=== PATIENT | female | born 1950 | race Caucasian/White ===

== ENCOUNTER → 2024-02-09 06:29 | Day surgery (SDC) | payer OTHER, SELFPAY | LOC: GI 06:29 | PROVIDERS: ATTENDING PHYSICIAN Internal Medicine Gastroenterology | DX: Z12.11 Encounter for screening for malignant neoplasm of colon (principal); K57.30 Diverticulosis of large intestine without perforation or abscess without bleeding; K64.0 First degree hemorrhoids; K63.5 Polyp of colon | CPT/HCPCS: 45380; 88305 ==

== ENCOUNTER → 2024-04-29 13:08 | Outpatient (REF) | payer OTHER, SELFPAY | LOC: HWWDC 13:08 | PROVIDERS: ATTENDING PHYSICIAN Family Medicine | DX: Z12.31 Encounter for screening mammogram for malignant neoplasm of breast (principal) | CPT/HCPCS: 77063; 77067 ==

== ENCOUNTER 2025-01-04 11:22 | Emergency (ER) | payer OTHER, SELFPAY ==
[2025-01-04] VITALS (11 sets, daily range): BP systolic 151–216; BP diastolic 72–118; BMI 23.4
[2025-01-04 12:01] LABS: % Basophils 0.8 % (0-2); % Eosinophils 0.7 % (0-6); % Immature Granulocytes 0.3 % (0-0.5); % Lymphocytes 22.4 % (20.5-51.1); % Monocytes 8.2 % (1.7-9.3); % Neutrophils 67.6 % (42.2-75.2); Absolute Basophils 0.1 10^3/uL (0-0.2); Absolute Eosinophils 0.1 10^3/uL (0-0.7); Absolute Lymphocytes 1.7 10^3/uL (1.2-3.4); Absolute Monocytes 0.6 10^3/uL (0.1-0.6); Absolute Neutrophils 5.2 10^3/uL (1.4-6.5); Hematocrit 40.2 % (37.0-47.0); Mean Corp Hgb Conc. 34.8 g/dL (33.0-37.0); Mean Corpuscular Hgb 29.7 pg (27.0-31.0); Mean Corpuscular Volume 85.4 fL (81.0-99.0); Mean Platelet Volume 9.7 fL (7.4-10.4); Nucleated Red Blood Cells % 0 %; Platelet Count 455 10^3/uL (130-400); Red Blood Cell Count 4.71 10^6/uL (4.20-5.40); Red Cell Dist. Width 13.2 % (11.5-14.5); White Blood Cell Count 7.6 10^3/uL (4.8-10.8)
[2025-01-04 12:02] LABS: INR 0.97; PT 13.2 Sec (11.4-14.6)
[2025-01-04 12:03] LABS: APTT 28.6 Sec (23.4-35.0)
[2025-01-04 12:05] LABS: ALT (SGPT) 18 U/L (0-35); AST (SGOT) 25 U/L (14-36); Albumin 4.2 g/dl (3.5-5.0); Alkaline Phosphatase 115 U/L (38-126); Blood Urea Nitrogen 19 mg/dl (7-17); Calcium 9.5 mg/dl (8.4-10.2); Carbon Dioxide 27 mmol/L (22-30); Chloride 101 mmol/L (98-107); Glucose 115 mg/dl (70-99); Potassium 4.1 mmol/L (3.5-5.1); Sodium 136 mmol/L (135-145); Total Bilirubin 0.5 mg/dl (0.2-1.3); Total Protein 6.7 g/dl (6.3-8.2); eGFR > 60.00
[2025-01-04 12:15] LABS: Troponin I < 0.012 ng/ml
--- NOTE | 2025-01-04 12:49 | ED.GENMED ---
History of Present Illness
General
Chief Complaint: Blood Pressure Problem
Source: patient
Exam Limitations: none
Time Seen by Provider: 01/04/25 12:27
Nursing documentation reviewed up to this point in time: agreed with
History of Present Illness
History of Present Illness:
74 yo female w h/o HTN, headaches presents for high blood pressure noted at PCP office 12/24/24 where she went due to feeling palpitations past month. EKG at PCP office showed 'irregularity' and referred to cardiology and placed her on Metoprolol 20
mg daily which she continues.
Saw Cardiology Dr. Hammer yesterday, placed on a heart monitor for a week, was on Lisinopril pst few years, that was DC'd and she was started on Losartan 100 mg of which she has had two doses yesterday, none
States 5/10 posterior headache, denies vision changes, felt nauseous on way here but denies nausea now, denies SOB, denies numbness or weakness.
Past History
Past History
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
ED Past Surgical History: Gynecological (Hysterectomy), Orthopedic, Tonsilectomy and Other (Brain surgery, removal of gastric tumor)
Social History
Tobacco: Non-smoker
Alcohol: None
Personal:
Living: alone
Employment: Employed
Family History
Family History: Other (Noncontributory)
Review of Systems
Review of Systems
Allergies reviewed?: Yes
All Other Systems: ROS reviewed and negative except as documented in HPI and ROS
Constitutional: Denies fever or fatigue
Respiratory: Denies trouble breathing (just feels like she has to take more deep breaths than usual)
Cardiac: Denies chest pain or diaphoresis
ABD/GI: Denies abdominal pain, nausea, vomiting or diarrhea
: Denies dysuria, frequency, difficulty voiding or urgency
Musculoskeletal: Reports no symptoms
Skin: Reports no symptoms
Neurological: Reports headache (5/10 posterior); Denies dizzy, weakness or numbness
Phy Exam
Physical Exam
Physical Exam:
GENERAL: No acute distress. A&Ox3.
CONSTITUTIONAL: Afebrile.
EYES: clear, conjunctivae normal
ENMT: moist mucus membranes, Pharynx nl
RESPIRATORY: Regular respirations, nonlabored, lungs clear.
CARDIOVASCULAR: Regular rate and rhythm, no murmurs, no rubs.
GI: Soft, nontender, normal BS
MUSCULOSKELETAL: Moves with ease. Well perfused.
SKIN: Warm, dry, pink
PSYCH: Normal mood and affect. Well kept, interactive and appropriate
NEUROLOGIC: Awake, alert and oriented. No focal neurological deficits
Course
Orders/Labs/Results
Orders:
Orders
01/04/25 11:29
Electrocardiogram (*1) Urgent
Reason for Study: Shortness of Breath
EKG- Treatment ONCE
01/04/25 11:42
Complete Blood Count/With Diff Urgent
Comprehensive Metabolic Panel Urgent
Protime/PTT Urgent
Troponin I Urgent
01/04/25 13:15
HydrALAZINE [Apresoline] 10 mg IV NOW STA
Abnormal Lab Results
01/04/25
11:42
Plt Count 455 H 10^3/uL
(130-400)
BUN 19 H mg/dl
(7-17)
Glucose 115 H mg/dl
(70-99)
01/04/25 11:42
01/04/25 11:42
Vital Signs
Initial and Last Documented VS:
Initial Vital Signs
Temp Pulse Resp BP Pulse Ox
98.1 F 66 18 216/118 97
01/04/25 11:25 01/04/25 11:25 01/04/25 11:25 01/04/25 11:25 01/04/25 11:25
Last Documented Vital Signs
Temp Pulse Resp BP Pulse Ox
98.1 F 72 13 170/86 96
01/04/25 11:25 01/04/25 14:45 01/04/25 14:45 01/04/25 14:45 01/04/25 14:00
Molding Fitter consulted with Physician
Molding Fitter consulted with physician?: Yes
Name of Physician Consulted: Axel
MDM/Problems Addressed
Differential Diagnosis Includes:
hypertensive urgency, hypertensive emergency
MDM/Problems Addressed:
74 yo female w h/o HTN, headaches presents for high blood pressure noted at PCP office 12/24/24 where she went due to feeling palpitations past month. EKG at PCP office showed 'irregularity' and referred to cardiology and placed her on Metoprolol 20
mg daily which she still takes
Saw Cardiology Dr. Hammer yesterday, placed on a heart monitor for a week, was on Lisinopril pst few years, that was DC'd and she was started on Losartan 100 mg of which she has had two doses yesterday, none
States 5/10 posterior headache, denies vision changes, felt nauseous on way here but denies nausea now, denies SOB, denies numbness or weakness.
EKG: NSR
Normal neuro exam
BP 205/97
CBC normal
CMP normal
Troponin normal
Has hx headaches, unsure if related to the HTN. No neuro deficits.
Dx: Hypertensive urgency, asymptomatic
1:[address] Reyna who recommends Hydralazine, continue Losartan
Pt has appt with PCP in 6 days she will keep
Strict return instructions reviewed.
1:35 p.m.
BP now 176/92 prior to Hydralazine
2:10 p.m.
15 min post Hydralazine, BP 153/74 pt feels dizzy, mild blurry vision, did ambulate steadily to BR and back.
Explained most likely side effect of medication, will monitory
2:50 p.m.
BP 170/78 feeling better. OOB and ambulating well, eyes feels a little hazy but much improved
Pt states she is comfortable going home. Her son at bedside will take her, he lives with her so she has good support and observation
Chronic conditions affecting care: HTN
*Critical Care Note
Total Time (30-74mins, 75-104mins- exclusive of procedures): Not Applicable
ED Attending Note
-
Portions of this chart may have been created with voice recognition software.� Occasional wrong word or��sound alike� substitutions may have occurred due to the inherent limitations of voice recognition software.
Discharge Plan
Departure
Patient Disposition: Home (Routine Discharge)
Date of Disposition: 01/04/25
Time of Disposition: 14:57
Patient with high blood pressure during this ER visit?: Yes
Condition: Good
Discharge Problem:
Asymptomatic hypertensive urgency
Instructions: High Blood Pressure (DC)
Prescriptions:
No Action
venlafaxine [Effexor XR] 37.5 MG capsule,extended release 24hr
37.5 mg PO HS
methimazole 10 MG tablet
5 mg PO .TWICE WEEKLY
zolpidem 5 MG tablet
5 mg PO HSPRN PRN (Reason: insomnia)
omeprazole 40 MG capsule,delayed release(DR/EC)
40 mg PO DAILY
sucralfate [Carafate] 1 GM/10 ML suspension
1 gm PO QIDPRN PRN (Reason: upper abdominal pain) Qty: [phone] [id number]
Referrals:
Jayy Foss MD [Family Provider] - Keep scheduled appt
Ezequiel Hammer, DO [Active] - As needed
Activity Restrictions/Additional Instructions:
As we discussed, nothing worrisome in your lab work, cardiac marker is normal (no sign of heart attack), no sign of a stroke, kidney function is good.
You were given Hydralazine here to lower your blood pressure.
Continue your Losartan as prescribed, if your blood pressure is still high in 2 days (greater than 170/[address] Hammer to discuss.
Keep your appointment with your PCP on Friday
Return here immediately for chest pain, trouble breathing, vision changes, numbness or weakness, confusion, difficulty speaking, dizziness, vomiting or feeling sicker in any way
The side effect from the Hydralazine should be gone by tomorrow
Take your Losartan when you get home.
Call me any time before 6 p.m. if you have any concerns or worries
Interventions
Interventions:
*Risk Screen - Suicide Last Done: 01/04/25 11:25
*General Assessment Last Done: 01/04/25 11:25
*Neglect/Abuse Screening Last Done: 01/04/25 11:25
ED- Fall Risk Assessment Last Done: 01/04/25 12:21
*ED COVID-19 Vaccine History Last Done: 01/04/25 11:25
*Nursing Disposition Last Done: 01/04/25 15:27
ED- Cardiac Assessment Last Done: 01/04/25 12:21
ED- Neurological Assessment Last Done: 01/04/25 12:21
ED- Pulmonary Assessment Last Done: 01/04/25 12:21
Discharge Date and Time
Discharge Date/Time: 01/04/25 15:28
Print Language: CENTRAL AFRICAN
[2025-01-04] MEDS: APRESOLINE 10 MG IV (13:34)
== END 2025-01-04 15:28 | disposition home or self-care (01) ==
LOC: EMR 11:22
PROVIDERS: EMERGENCY PHYSICIAN Emergency Medicine; FAMILY PHYSICIAN Family Medicine; OTHER PHYSICIAN Internal Medicine Cardiovascular Disease
DX: I16.0 Hypertensive urgency (principal); Z79.899 Other long term (current) drug therapy; Z90.710 Acquired absence of both cervix and uterus
CPT/HCPCS: 96374; 99284; 80053; 84484; 85025; 85610; 85730; 93005

== ENCOUNTER → 2025-01-25 12:30 | Outpatient (REF) | payer OTHER, SELFPAY | LOC: HWRAD 12:30 | PROVIDERS: ATTENDING PHYSICIAN Internal Medicine Cardiovascular Disease; FAMILY PHYSICIAN Family Medicine | DX: R06.02 Shortness of breath (principal) | CPT/HCPCS: 93306 ==

== ENCOUNTER → 2025-02-09 14:44 | Outpatient (REF) | payer OTHER, SELFPAY | LOC: RAD 14:44 | PROVIDERS: ATTENDING PHYSICIAN Family Medicine | DX: I10 Essential (primary) hypertension (principal) | CPT/HCPCS: 93975 ==

== ENCOUNTER 2025-06-10 16:17 | Inpatient (IN) | payer OTHER, SELFPAY ==
[2025-06-10] VITALS (11 sets, daily range): BP systolic 129–165; BP diastolic 73–84; BMI 23.6; BMI 22.6
--- NOTE | 2025-06-10 08:10 | ED.GENMED ---
History of Present Illness
<Brionna Roque MD, Resident - Last Filed: 06/10/25 14:44>
General
Chief Complaint: Abdominal Pain
Source: patient and significant other
Exam Limitations: none
Time Seen by Provider: 06/10/25 07:32
Nursing documentation reviewed up to this point in time: agreed with
History of Present Illness
History of Present Illness:
Ms. Marichuy Beckham is a 75-year-old female with a PMH notable for a small pancreatic cyst, PUD (s/p cauterization 6 years ago), stomach GIST (s/p surgical resection years ago), Graves', in remission for 6 years, and hypertensive urgency, who is
presenting with 3 weeks of increasing upper abdominal pain.
The pain is in the epigastric region and radiates to the right side and around to the back. The pain started as dull and she is coming to the ED because the pain has increased since yesterday. The pain waxes and wanes, lasting 15 minutes. The pain
has improved with eating.
She brought this concern to her PCP on 06/06/2025; all labs were normal (CBC, CMP, AST, ALT, bili lipase, and amylase) except for an elevated ALP at 221. The H. pylori test was inconclusive (patient recalls reading the reason as low CO2).
After her PCP visit on 06/06/2025, she developed chest discomfort ('like my heart was going to pop out of my chest') while walking up a hill. She then wanted to lie down, which she did after she returned home. She felt fatigued for 2 days
until Friday, after which her abdominal pain intensified. In December 2024 she presented to the ED due to a headache and high blood pressure and her rate irregularity found at her PCPs office. She was treated for hypertensive urgency. Her
Holter monitor and echo were negative. She states the cardiac symptoms in the last few days felt different from December.
She received cauterization for gastric or duodenal ulcers 6 years ago and has not had issues with it since then. She states the GIST in her stomach was cured via surgical resection after lack of response to Gleevec. She is in remission for Graves'
disease for 6 years.
She denies weight loss, diarrhea, nausea/vomiting.
Past History
<Brionna Roque MD, Resident - Last Filed: 06/10/25 14:44>
Past History
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
ED Past Surgical History: Gynecological (Hysterectomy), Orthopedic, Tonsilectomy and Other (Brain surgery, removal of gastric tumor)
Social History
Tobacco: Non-smoker
Alcohol: None
Personal:
Living: alone
Employment: Employed
Family History
Family History: Other (Noncontributory)
Review of Systems
<Brionna Roque MD, Resident - Last Filed: 06/10/25 14:44>
Review of Systems
All Other Systems: ROS reviewed and negative except as documented in HPI and ROS
Phy Exam
<Brionna Roque MD, Resident - Last Filed: 06/10/25 14:44>
Physical Exam
Physical Exam:
General: No acute distress, alert
Abdomen: Tenderness to light and deep palpation in the epigastric region, right upper quadrant, left upper quadrant.
Tenderness to palpation left lower quadrant and right lower quadrant. No suprapubic tenderness. Normal bowel sounds.
Spine: No CVA tenderness bilaterally. No deformities of the spine.
Cardiovascular: Normal rate and rhythm. Radial pulses 2+ bilaterally.
No pedal edema
Lungs: Clear to auscultation bilaterally
Course
<Brionna Roque MD, Resident - Last Filed: 06/10/25 14:44>
Orders/Labs/Results
Orders:
Orders
06/10/25 07:12
ECG [Electrocardiogram (*1)] Urgent
Reason for Study: Abdominal Pain
06/10/25 07:13
EKG- Treatment ONCE
06/10/25 07:47
Complete Blood Count/With Diff Urgent
Comprehensive Metabolic Panel Urgent
Lipase Urgent
06/10/25 08:36
Cardiac Monitoring- Treatment ONCE
06/10/25 08:37
CT Abd/pel W Iv And Oral Contr Urgent
Comment:
Reason For Exam: upper abd pain; hx PUD, panc cyst, stomach GIST
Iohexol [Omnipaque] See Protocol PO NOW STA
06/10/25 08:38
Pantoprazole [Protonix IV] 40 mg IV NOW STA
06/10/25 08:40
Troponin I Urgent
06/10/25 09:12
Urinalysis Reflex To Culture Urgent
Date Specimen was Collected: 06/10/25
Time Specimen was Collected: 09:09
Urine Microscopic Reflex Cult Urgent
06/10/25 11:30
Morphine Sulfate 4 mg IV NOW STA
06/10/25 11:33
Ondansetron Injectable [Zofran] 4 mg IV NOW STA
06/10/25 14:35
Code Status As Directed
Resuscitation Status: Do not resuscitate
Reached after discussion with pt or family/Healthcare POA: Yes
06/10/25 14:43
PTT Urgent
Comment: Obtain baseline before beginning heparin infusion if not already collected
Heparin 4,800 units IV NOW STA
Pharmacy Request to Place See Dose Instructions PO NOW STA
Discontinue all Active Warfarin orders?: Yes
Nursing to Place Non Medication Order As Directed
Physician Order: PTT 6 hours after initial start of Heparin infusion
06/10/25 14:45
Heparin [id number] Units/250 ml 25,000 units in 250 ml IV PER PROTOCOL
Weight to be used for heparin protocol in kilograms (kg):: 60.5
Protocol:: DVT/PE
PTT Goal Range to be used:: PTT 73 to 111 seconds
Order type:: Initial
INITIAL Infusion Dose (UNITS/KG/hr) & then follow protocol:: 18 units/kg/hr
Infusion Dose in UNITS/hr & then follow protocol (UNITS/hr):: 1,100
INFUSION RATE in mL/hr & then follow protocol (mL/hr):: 11
For DVT/PE algorithm, re-bolus for low PTT?: Yes
PTT less than or equal to 64 seconds:: Re-bolus 80 units/kg (max 10,000units). Increase by 200 units/hr
(+ 2mL/hr)
PTT 64.1 to 72.9 seconds:: Re-bolus 40 units/kg (max 5,000 units). Increase by 100 units/hr
(+ 1mL/hr)
PTT 73 to 111 seconds:: Target Range. No change in rate.
PTT 111.1 to 130.9 seconds:: Decrease rate by 100 units/hr (- 1 mL/hr)
PTT 131 to 199.9 seconds:: HOLD for 1 hr. Then decrease by 200 units/hr (- 2mL/hr)
PTT greater than or equal to 200 seconds:: HOLD for 2 hrs & Notify Provider. Then decrease by 200 units/hr
(- 2mL/hr)
Lab follow-up:: Each change, PTT q6h until 2 consecutive are therapeutic. Then
PTT daily.
06/10/25 15:[address] See Dose Instructions IV DIRECTED
Abnormal Lab Results
06/10/25 06/10/25
07:47 09:12
Abs Immat Gran (auto) 0.1 H 10^3/uL
(0-0.05)
Absolute Monos (auto) 0.9 H 10^3/uL
(0.1-0.6)
Immature Gran % 0.7 H %
(0-0.5)
Lymphocytes % 14.6 L %
(20.5-51.1)
Monocytes % 10.7 H %
(1.7-9.3)
Glucose 113 H mg/dl
(70-99)
AST 37 H U/L
(14-36)
Alkaline Phosphatase 169 H U/L
(38-126)
Urine Albumin (Reflex) 1+ A
(Neg - Trace)
06/10/25 07:47
06/10/25 07:47
Vital Signs
Initial and Last Documented VS:
Initial Vital Signs
Temp Pulse Resp BP Pulse Ox
98.1 F 72 16 162/81 96
06/10/25 07:21 06/10/25 07:21 06/10/25 07:21 06/10/25 07:21 06/10/25 07:21
Last Documented Vital Signs
Temp Pulse Resp BP Pulse Ox
98.1 F 66 19 165/77 95
06/10/25 07:21 06/10/25 11:20 06/10/25 11:20 06/10/25 12:01 06/10/25 12:30
<Andrew Millard, DO - Last Filed: 06/10/25 14:47>
Orders/Labs/Results
Orders:
Orders
06/10/25 07:12
ECG [Electrocardiogram (*1)] Urgent
Reason for Study: Abdominal Pain
06/10/25 07:13
EKG- Treatment ONCE
06/10/25 07:47
Complete Blood Count/With Diff Urgent
Comprehensive Metabolic Panel Urgent
Lipase Urgent
06/10/25 08:36
Cardiac Monitoring- Treatment ONCE
06/10/25 08:37
CT Abd/pel W Iv And Oral Contr Urgent
Comment:
Reason For Exam: upper abd pain; hx PUD, panc cyst, stomach GIST
Iohexol [Omnipaque] See Protocol PO NOW STA
06/10/25 08:38
Pantoprazole [Protonix IV] 40 mg IV NOW STA
06/10/25 08:40
Troponin I Urgent
06/10/25 09:12
Urinalysis Reflex To Culture Urgent
Date Specimen was Collected: 06/10/25
Time Specimen was Collected: 09:09
Urine Microscopic Reflex Cult Urgent
06/10/25 11:30
Morphine Sulfate 4 mg IV NOW STA
06/10/25 11:33
Ondansetron Injectable [Zofran] 4 mg IV NOW STA
06/10/25 14:35
Code Status As Directed
Resuscitation Status: Do not resuscitate
Reached after discussion with pt or family/Healthcare POA: Yes
06/10/25 14:43
PTT Urgent
Comment: Obtain baseline before beginning heparin infusion if not already collected
Heparin 4,800 units IV NOW STA
Pharmacy Request to Place See Dose Instructions PO NOW STA
Discontinue all Active Warfarin orders?: Yes
Nursing to Place Non Medication Order As Directed
Physician Order: PTT 6 hours after initial start of Heparin infusion
06/10/25 14:45
Heparin [id number] Units/250 ml 25,000 units in 250 ml IV PER PROTOCOL
Weight to be used for heparin protocol in kilograms (kg):: 60.5
Protocol:: DVT/PE
PTT Goal Range to be used:: PTT 73 to 111 seconds
Order type:: Initial
INITIAL Infusion Dose (UNITS/KG/hr) & then follow protocol:: 18 units/kg/hr
Infusion Dose in UNITS/hr & then follow protocol (UNITS/hr):: 1,100
INFUSION RATE in mL/hr & then follow protocol (mL/hr):: 11
For DVT/PE algorithm, re-bolus for low PTT?: Yes
PTT less than or equal to 64 seconds:: Re-bolus 80 units/kg (max 10,000units). Increase by 200 units/hr
(+ 2mL/hr)
PTT 64.1 to 72.9 seconds:: Re-bolus 40 units/kg (max 5,000 units). Increase by 100 units/hr
(+ 1mL/hr)
PTT 73 to 111 seconds:: Target Range. No change in rate.
PTT 111.1 to 130.9 seconds:: Decrease rate by 100 units/hr (- 1 mL/hr)
PTT 131 to 199.9 seconds:: HOLD for 1 hr. Then decrease by 200 units/hr (- 2mL/hr)
PTT greater than or equal to 200 seconds:: HOLD for 2 hrs & Notify Provider. Then decrease by 200 units/hr
(- 2mL/hr)
Lab follow-up:: Each change, PTT q6h until 2 consecutive are therapeutic. Then
PTT daily.
06/10/25 15:[address] See Dose Instructions IV DIRECTED
Abnormal Lab Results
06/10/25 06/10/25
07:47 09:12
Abs Immat Gran (auto) 0.1 H 10^3/uL
(0-0.05)
Absolute Monos (auto) 0.9 H 10^3/uL
(0.1-0.6)
Immature Gran % 0.7 H %
(0-0.5)
Lymphocytes % 14.6 L %
(20.5-51.1)
Monocytes % 10.7 H %
(1.7-9.3)
Glucose 113 H mg/dl
(70-99)
AST 37 H U/L
(14-36)
Alkaline Phosphatase 169 H U/L
(38-126)
Urine Albumin (Reflex) 1+ A
(Neg - Trace)
06/10/25 07:47
06/10/25 07:47
Vital Signs
Initial and Last Documented VS:
Initial Vital Signs
Temp Pulse Resp BP Pulse Ox
98.1 F 72 16 162/81 96
06/10/25 07:21 06/10/25 07:21 06/10/25 07:21 06/10/25 07:21 06/10/25 07:21
Last Documented Vital Signs
Temp Pulse Resp BP Pulse Ox
98.1 F 66 19 165/77 95
06/10/25 07:21 06/10/25 11:20 06/10/25 11:20 06/10/25 12:01 06/10/25 12:30
<Brionna Roque MD, Resident - Last Filed: 06/10/25 14:44>
MDM/Problems Addressed
Differential Diagnosis Includes:
Peptic ulcer disease
Gallstone
Renal stone
Stomach GIST recurrent
Other malignancy
Coronary artery disease
Hepatitis
Primary sclerosing cholangitis
Primary biliary cholangitis
Pancreatitis
Adhesions, bowel obstruction
MDM/Problems Addressed:
Ms. Marichuy Hicks is a 72-year-old female with a PMH notable for PUD, stomach GIST, pancreatic cyst, hypertensive urgency, Graves', trigeminal neuralgia, and hysterectomy, who is presenting with 3 weeks of epigastric pain.
Peptic ulcer disease is being considered given her endorsement of the pain decreasing with eating. Given her history of PUD, and pancreatic cyst, GIST s/p resection, and hysterectomy, will obtain a CT.
Protonix 40 mg IV
Patient reported increasing pain.
Morphine 4 mg IV
Zofran 4 mg IV
CBC: elevated granulocytes on differential
CMP: ALP 169, AST 37
Lipase: wnl
UA: wnl
EKG: NSR
Troponin I: WNL
library monitor
CT abdomen pelvis with IV and oral contrast
CT abdomen pelvis demonstrated a large, 11 cm heterogenous hepatic mass with satellite hepatic lesions likely representing HCC, metastases, or other malignancy. There is significant portal venous thrombus in the R & L intrahepatic portal veins,
likely tumor thrombus. There is also a mass in the left adrenal gland, likely a metastasis.
The patient received oncologic care for her stomach GIST at [place]. We asked if she would like to be transferred to [facility] or stay at [facility]. She stated she would like to proceed swiftly with cancer workup and
management at [facility].
Oncology and gastroenterology have been consulted for the management of her portal venous thrombus and cancer workup.
Chronic conditions affecting care: HTN, Previous abdomnial surgery and Cancer
<Brionna Roque MD, Resident - Last Filed: 06/10/25 14:44>
*Radiology
Radiology exam reviewed: radiology read reviewed
*Pulse Oximetry
SaO2: 96
Oxygen Mode of Delivery: Room air
Patient hypoxic: no
*EKG
Interpreted by ED Provider?: Yes
Interpretation: normal
Comparison EKG: no changes
Rate: normal
Rhythm: sinus
[place]: normal axis
Interval: normal interval
QRS Pattern: normal QRS
Ischemia: no ischemia
*[employer] Interpretation
Rate: normal
Interpretation: normal
Rhythm: sinus
*Critical Care Note
Total Time (30-74mins, 75-104mins- exclusive of procedures): Not Applicable
ED Attending Note
<Brionna Roque MD, Resident - Last Filed: 06/10/25 14:44>
-
Portions of this chart may have been created with voice recognition software.� Occasional wrong word or��sound alike� substitutions may have occurred due to the inherent limitations of voice recognition software.
<Andrew Millard, DO - Last Filed: 06/10/25 14:47>
ED Attending Note
Patient seen and examined by attending physician: Yes
I performed a history and physical exam of patient and discussed management with resident, I reviewed resident's note and agree with documented findings and plan of care.: Yes
ED Attending Note:
I reviewed and agree with history and treatment plan by Brionna Roque MD. My exam revealed 75-year-old female in no significant distress, mild epigastric tenderness with no rebound or guarding. CT abdomen pelvis pending. Protonix given. Alkaline
phosphatase now 169, it was elevated to 223 on Friday at primary care office. This was found on patient's [facility] portal.
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 Admit to hospitalist for heparin and biopsy. Discussion with gastroenterology, oncology and hospitalist.
Discharge Plan
Departure
Patient Disposition: Admit
Date of Disposition: 06/10/25
Time of Disposition: 13:54
Admit to: Med/Surg
Presentation/result/management discussed w/ accepting MD/DO: Hospitalist
Patient with high blood pressure during this ER visit?: Yes
Condition: Fair
Discharge Problem:
Liver malignancy, PVT (portal vein thrombosis), Adrenal mass, History of gastrointestinal stromal tumor (GIST)
Prescriptions:
No Action
venlafaxine [Effexor XR] 37.5 MG capsule,extended release 24hr
37.5 mg PO HS
zolpidem 5 MG tablet
5 mg PO HS
omeprazole 40 MG capsule,delayed release(DR/EC)
40 mg PO DAILY
amlodipine [Norvasc] 5 mg Tablet
5 mg PO HS
metoprolol succinate [Toprol XL] 25 mg Tablet Extended Release 24 Hr
25 mg PO HS
losartan 100 mg Tablet
100 mg PO HS
Referrals:
Jayy Foss MD [Family Provider, Family Practice]
Interventions
Interventions:
*Risk Screen - Suicide Last Done: 06/10/25 08:39
*General Assessment Last Done: 06/10/25 08:37
*Neglect/Abuse Screening Last Done: 06/10/25 08:37
*ED- Fall Risk Assessment Last Done: 06/10/25 07:21
*ED COVID-19 Vaccine History Last Done: 06/10/25 07:21
BU-Trdlnm-[facility] Assessment Last Done: 06/10/25 09:37
Discharge Date and Time
Print Language: ICELANDIC
[2025-06-10 08:44] LABS: Hematocrit 38.7 % (37.0-47.0); Hemoglobin 13.0 g/dL (12.0-16.0); Mean Corp Hgb Conc. 33.6 g/dL (33.0-37.0); Mean Corpuscular Volume 84.7 fL (81.0-99.0); Nucleated Red Blood Cells % 0 %; Platelet Count 367 10^3/uL (130-400); Red Cell Dist. Width 13.2 % (11.5-14.5)
[2025-06-10] MEDS: OMNIPAQUE 50 ML PO (08:44)
[2025-06-10] MEDS: PROTONIX IV 40 MG IV (08:44)
[2025-06-10 09:01] LABS: ALT (SGPT) 28 U/L (0-35); AST (SGOT) 37 U/L (14-36); Albumin 3.8 g/dl (3.5-5.0); Alkaline Phosphatase 169 U/L (38-126); Blood Urea Nitrogen 16 mg/dl (7-17); Calcium 9.4 mg/dl (8.4-10.2); Carbon Dioxide 27 mmol/L (22-30); Chloride 107 mmol/L (98-107); Estimated Creatinine Clearance 69 ml/min; Glucose 113 mg/dl (70-99); Lipase 46 U/L (23-300); Potassium 4.3 mmol/L (3.5-5.1); Sodium 138 mmol/L (135-145); Total Protein 6.3 g/dl (6.3-8.2); eGFR > 60.00
[2025-06-10 09:10] LABS: Troponin I < 0.012 ng/ml
[2025-06-10 09:21] LABS: Urine Character Clear (Clear)
[2025-06-10 09:48] LABS: Urine Red Blood Cell 0-2 /HPF (0-2); Urine Squamous Cell 0-2 /LPF (Few); Urine Urothelial Cell 0-2 /LPF (FEW); Urine White Cell 0-2 /HPF (0-5)
[2025-06-10] MEDS: ZOFRAN 4 MG IV (11:53)
[2025-06-10] MEDS: MORPHINE SULFATE 4 MG IV (11:53)
--- NOTE | 2025-06-10 13:54 | HPS.HSE ---
Addendum entered and electronically signed by Cherelle Suarez MD 06/10/25 16:19:
I personally performed a history and physical exam of the patient and discussed management with the resident. I reviewed the resident's note and agree with the documented findings and plan of care HPI/CC.
GENERAL: well developed, well nourished, female in no apparent distress
HEENT: NC/AT
HEART: regular rate and rhythm, +S1, +S2
LUNGS : clear to auscultation bilaterally
ABDOM: soft, minimally tender in RUQ, nondistended, + bowel sounds
EXT: no cyanosis, clubbing, or edema
NEUROLOGIC: nonfocal
Right Hepatic Lobe Masses with adrenal mass and portal vein thromboses--pt needs liver biopsy--apprec GI/heme--cont IV heparin--needs IR consult for liver biopsy--It is very possible that the thromboses are from her tumors--follow coags--pain control
Graves Disease--s/p methimazole--off all meds--check TSH
Essential Hypertension--Continue Losartan, Metoprolol, Amlodipine as able
History of stomach gastrointestinal Stromal Tumor--S/p resection in 2008 at [place]
History of Peptic Ulcer Disease with GI bleeding--none currently--cont PPI
History of Pancreatic Cyst--Encouraged outpatient monitoring
DVT proph--IV heparin
code status--DNR
Original Note:
Family Physician
-
Family Physician: Jayy Foss
Chief Complaint
-
Abdominal Pain
History of Present Illness
This is a 75 y/o female with pmhx of pancreatic cyst, peptic ulcer disease (S/p cauterization), stomach gastrointestinal stroll tumor (diagnosed in 2008, s/p resection), Grave�s Disease in remission for 6 years, who presented to the ED on 06/10/2025
with 3 weeks of increasing abdominal pain in her epigastric region radiating to the right side and around to her back. She reports that initially her symptoms began with an ache, but as of last weekend it increased to waves of pain. Her pain was
improved by eating and worsened by pressing on the right side of her abdomen. She scheduled an appointment with her PCP on 06/06/2025, who ordered labs for her including CBC, CMP, Lipase, Amylase. Her ALP was elevated at 221, but otherwise all tests
were within normal limits. That same day she reports sudden onset of shortness of breath while walking that required her to sit down. This episode resolved within 5 minutes on its own, and she never had shortness of breath like this before or since.
She states that during this episode it felt like she could not catch her breath and her heart was racing out of her chest, but denied any chest pain. She also reports a history of night sweats, but denies any weight loss or enlarged lymph nodes that
she has noticed.
On 06/08/2025 her pain continued to worsen until it became unbearable this morning, prompting her visit to the ED. Her Alkaline Phosphatase in the ED was 169, and her AST was 37. CT Abdomen/Pelvis in the ED revealed a large, space-occupying mass seen
in the right hepatic lobe measuring 11cm in the greatest diameter. Thrombus is seen in the right portal vein, main portal vein, and central left portal vein, likely representing tumor thumbs. Smaller additional hepatic lesion seen within the
posterior superior right hepatic lobe. There is a left adrenal mass measuring 1.8cm in diameters. The results of these findings have been discussed with her and her boyfriend.
Medical History
Past Medical History
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
Past Surgical History: Reports Brain (Patient reports prior brain surgery for trigeminal neuralgia ), Gynocological (Hysteretomyc) and Other (Spinal Fusion C4)
Social History
Tobacco: Non-smoker
Alcohol: None
Drug: None
Personal: Partner
Living: Other
Family History
Family History: Cancer (Brother of brain cancer at approximately 68 years old) and Other (Father in accident when she was young, Mother of natural causes, did not share medical history)
Allergies / Home Medications
Allergies reflects when Allergies were last updated in [employer].
Home Medications with original date entered in [employer]
Allergy/Medication List:
Allergies
Allergy/AdvReac Type Severity Reaction Status Date / Time
amoxicillin trihydrate (From Allergy Hives Verified 06/10/25 07:28
Augmentin)
carbamazepine (From Tegretol) Allergy Rash/fever Verified 06/10/25 07:28
latex Allergy Itching/kathe Verified 06/10/25 07:28
h
Penicillins Allergy Pharmacy Verified 06/10/25 07:28
to Review
potassium clavulanate (From Allergy Hives Verified 06/10/25 07:28
Augmentin)
Home Medications
venlafaxine 37.5 mg capsule,extended release 24 hr (Effexor XR) 37.5 mg PO HS 05/11/14
zolpidem 5 mg tablet 5 mg PO HS 10/16/16
omeprazole 40 mg capsule,delayed release 40 mg PO DAILY 04/14/18
amlodipine 5 mg tablet (Norvasc) 5 mg PO HS 06/10/25
losartan 100 mg tablet 100 mg PO HS 06/10/25
metoprolol succinate 25 mg tablet,extended release 24 hr (Toprol XL) 25 mg PO HS 06/10/25
Review of Systems
-
History Source: Patient
A 12 point ROS was completed and negative except as noted: Yes
Constitutional: Reports Night Sweats; Denies Fever, Weight Loss, Fatigue or Chills
EENT: Reports Runny Nose (While eating); Denies Sore Throat or Mouth Pain
Respiratory: Reports See HPI; Denies Cough
Cardiac: Denies Chest Pain, Diaphoresis or Palpitations
Abdomen/GI: Reports Abdominal Pain; Denies Nausea, Vomiting, Diarrhea or Constipated
: Denies Dysuria, Frequency or Urgency
Musculoskeletal: Denies Joint Pain or Muscle Pain
Skin: Denies Rash
Neurological: Denies Headache, Weakness or Numbness
Endocrine: Denies Polyuria
Hematologic/Lymphatic: Denies Bleeding
Psych: Reports Calm
Physical Exam
Vital Signs
Vital Signs
Temp Pulse Resp BP Pulse Ox
98.1 F 66 19 165/77 95
06/10/25 07:21 06/10/25 11:20 06/10/25 11:20 06/10/25 12:01 06/10/25 12:30
Physical Exam
General: Well Developed, Well Nourished, No Apparent Distress, Comfortable and Conversant
HEENT: NormoCephalic and Atraumatic
Respiratory: Clear
Cardiac: S1/S2 and Regular Rhythm
GI: Soft, Non Tender (Left side only), Non Distended, Normal Bowel Sounds and Tender (Right side)
Musculoskeletal: No Edema
Skin: Warm and Dry
Neuro: Awake, Alert and Oriented
Psych: Calm and Intact Judgment/Insight
Laboratory Results
-
06/10/25 07:47
06/10/25 07:47
Laboratory Results
Total Bilirubin 0.7 mg/dl (0.2-1.3) 06/10/25 07:47
AST 37 U/L (14-36) H 06/10/25 07:47
ALT 28 U/L (0-35) 06/10/25 07:47
Alkaline Phosphatase 169 U/L (38-126) H 06/10/25 07:47
Troponin I < 0.012 ng/ml 06/10/25 08:40
Lipase 46 U/L (23-300) 06/10/25 07:47
Impression/Plan
-
IMPRESSION:
This is a 75 y/o female with pmhx of pancreatic cyst, peptic ulcer disease (S/p cauterization), stomach gastrointestinal stroll tumor (diagnosed in 2008, s/p resection), Grave�s Disease in remission for 6 years, who presented to the ED on 06/10/2025
with 3 weeks of increasing abdominal pain in her epigastric region radiating to the right side and around to her back found to have masses in her liver and portal vein thromboses.
PLAN:
Right Hepatic Lobe Mass x 2/Adrenal Mass/Portal Vein Thromboses x 3
-CT Abdomen/Pelvis in the ED revealed a large, space-occupying mass seen in the right hepatic lobe measuring 11cm in the greatest diameter. Thrombus is seen in the right portal vein, main portal vein, and central left portal vein, likely
representing tumor thumbs. Smaller additional hepatic lesion seen within the posterior superior right hepatic lobe. There is a left adrenal mass measuring 1.8cm in diameters.
-Unclear origin of masses, concern for malignancy originating in the Liver vs Adrenals with Mets vs Independently originating masses. It is also possible for all masses observed to originate from the colon, though no other masses were noted on her
CT scan.
-Admitted patient for evaluation and treatment of new masses and thromboses. It is very possible that the thromboses are from her tumors
-Consulted IR for biopsy of 11cm liver mass
-Consulted Gastroenterology and Hematology/Oncology. Will appreciate their insight into her case
-Continue Heparin
-Ordered Coagulation studies
-Will monitor for worsening pain
Graves Disease
-In remission without use of medication for 6 years.
-Ordered TSH w/ Reflex to T4
Hypertension
-Patient with history of ED visit for hypertensive urgency
-Continue home meds (Losartan, Metoprolol, Amlodipine)
History of stomach gastrointestinal Stromal Tumor
-S/p resection in 2008 at [place]
-Encouraged follow up
History of Peptic Ulcer Disease
-Status post cauterization
-No current signs of GI bleed
-Will continue to monitor H&H
-Ordered Pantoprazole
History of Pancreatic Cyst
-Encouraged outpatient monitoring
--- NOTE | 2025-06-10 15:09 | CON.GI ---
Addendum entered and electronically signed by Marjan Shepard Do, MD 06/10/25 16:46:
I saw and examined the patient.
The ROLLER PNEUMATIC's note was reviewed and I agree with the note.
Comment: Marichuy is a 75yo W with h/o GIST s/p resection 2009 at [place] and small pancreatic cyst who was admitted for abd pain x3 weeks. She reports UTD with Cscope, mammograms and all her screening exams. Vitals stable exam younger than
stated age, mildly TTP in RUQ. Labs reviewed. CTAP IV oral contrast shows R hepatic lobe mass 11cm in size with large PVT suggestive of tumor thrombus. There is also L adrenal mass.
Impression
- 11cm liver mass
- PTV suggestive of tumor thrombus
- H/o GIST s/p resection
- H/o small pancreatic cyst no seen on today's CTAP IV contrast
- HTN
- GERD
Recommendations
- Agree with liver bx on Friday
- She has no signs of cirrhosis.
- AFP and tumor markers all sent
- Add viral hepatitis serologies but she has no risk factors
- Given that PVT appears to be tumor thrombus, anticoagulation would not be helpful in this situation however I would defer to hematology.
- C/w regular diet
Above d/w hospitalist and ER team
GI will sign off please call for ?
Addendum entered and electronically signed by LILIAN Aguilera 06/10/25 16:11:
family hx per OP chart- sibling with brain CA
Original Note:
Consultation
-
Date/Time Consultation Requested: 06/10/25 1330
Date/Time Consultation Performed: 06/10/25 1500
Requesting Provider: Hari Roque MD
Performing Provider: LILIAN Luna, Marjan Ibarra MD
Reason for Consultation: liver mass
Medical History
Chief Complaint / HPI
Chief Complaint: abdominal pain
History of Present Illness:
Pt is a 75yo with hx pancreatic cyst (last noted 2020 0.7cm without suspicious feature- pseudocyst vs IPMN did not proceed for 2 year follow up), GIST with Gleevac then [facility], PUD, HTN urgency, hyperlipidemia graves disease,
trigeminal neuralgia with prior brain surgery with onset HTN and palpitations several months ago. She had cardiology evaluation and now with onset of epigastric pain over last 3 weeks. She was seen by PCP on Friday and recommended MRI and labs.
After visit she had period of shortness of breath. She now presents with continued pain and CT completed on admission with concern for large mass right hepatic lobe and smaller satellite lesions concern for malignancy with also large PVT with
concern for tumor thrombus and adrenal mass. Labs on admission with stable hbg 13 with bili 0.7, AST 37, ALT 28, alk phos 169.
In review with patient she admits to epigastric pain x 3 weeks. Pain in intermittent. Initially though pain was better with eating but then no change with eating. She did have some improvement with Morphine given in ER. Unable to state what
makes pain worse. She otherwise denies odynophagia, dysphagia, GERD, nausea, vomiting, wt loss, diarrhea, constipation or rectal bleeding. Last EGD 2017 and colonoscopy 2023.
Past Medical History
Past Medical History: HTN (with HTN urgency), Hypercholesterolemia, Psychiatric (anxiety ) and Other (grave's disease on tapazole, gastric ulcers, 2016, GIST tumor with resection 2009, trigeminal neuralgia, insomnia, panc cyst )
Past Surgical History: Gynecological (hysterectomy), Orthopedic (spinal fusion, knee scope with partial medial meinscectomy), Tonsilectomy and Other (brain surgery for trigeminal neuralgia, gist tumor resection 2009 [facility] )
Social History
Tobacco: Non-Smoker
Alcohol: None
Drug: None
Personal:
Living: With Family
Employment: Employed
Family History
Family History: Other
Allergies / Home Medications
Allergy/AdvReac Type Severity Reaction Status Date / Time
amoxicillin trihydrate (From Allergy Hives Verified 06/10/25 07:28
Augmentin)
carbamazepine (From Tegretol) Allergy Rash/fever Verified 06/10/25 07:28
latex Allergy Itching/kathe Verified 06/10/25 07:28
h
Penicillins Allergy Pharmacy Verified 06/10/25 07:28
to Review
potassium clavulanate (From Allergy Hives Verified 06/10/25 07:28
Augmentin)
�Medication �Instructions �Recorded
venlafaxine 37.5 mg 37.5 mg PO HS 05/11/14
capsule,extended release 24 hr
(Effexor XR)
zolpidem 5 mg tablet 5 mg PO HS 10/16/16
omeprazole 40 mg capsule,delayed 40 mg PO DAILY 04/14/18
release
amlodipine 5 mg tablet (Norvasc) 5 mg PO HS 06/10/25
losartan 100 mg tablet 100 mg PO HS 06/10/25
metoprolol succinate 25 mg 25 mg PO HS 06/10/25
tablet,extended release 24 hr
(Toprol XL)
Review of Systems
-
History Source: Patient and Family
Constitutional: Reports No Symptoms
EENT: Reports No Symptoms
Respiratory: Reports Trouble Breathing (1 episode a few weeks ago )
Abdomen/GI: Reports Abdominal Pain
: Reports No Symptoms
Musculoskeletal: Reports No Symptoms
Skin: Reports No Symptoms
Neurological: Reports No Symptoms
Endocrine: Reports No Symptoms
Hematologic/Lymphatic: Reports No Symptoms
Vital Signs
Temp Pulse Resp BP Pulse Ox
98.1 F 66 19 165/77 95
06/10/25 07:21 06/10/25 11:20 06/10/25 11:20 06/10/25 12:01 06/10/25 12:30
Physical Exam
Exam
General: Well Developed, Well Nourished and No Apparent Distress
HEENT: Normocephalic, Anicteric and Moist Mucous Membranes
Respiratory: Clear
Cardiac: Regular Rhythm
GI: Soft, Non Distended and Tender (minimal epigastric tenderness )
Musculoskeletal: No Clubbing and No Cyanosis
Skin: Warm and Dry
Neuro: Awake, Alert and AO x 3
Psych: Calm
Results
WBC 8.2 10^3/uL (4.8-10.8) 06/10/25 07:47
Hgb 13.0 g/dL (12.0-16.0) 06/10/25 07:47
Hct 38.7 % (37.0-47.0) 06/10/25 07:47
MCV 84.7 fL (81.0-99.0) 06/10/25 07:47
Plt Count 367 10^3/uL (130-400) 06/10/25 07:47
Absolute Neuts (auto) 5.8 10^3/uL (1.4-6.5) 06/10/25 07:47
Sodium 138 mmol/L (135-145) 06/10/25 07:47
Potassium 4.3 mmol/L (3.5-5.1) 06/10/25 07:47
Chloride 107 mmol/L (98-107) 06/10/25 07:47
Carbon Dioxide 27 mmol/L (22-30) 06/10/25 07:47
BUN 16 mg/dl (7-17) 06/10/25 07:47
Creatinine 0.6 mg/dL (0.6-1.0) 06/10/25 07:47
Calcium 9.4 mg/dl (8.4-10.2) 06/10/25 07:47
Total Bilirubin 0.7 mg/dl (0.2-1.3) 06/10/25 07:47
AST 37 U/L (14-36) H 06/10/25 07:47
ALT 28 U/L (0-35) 06/10/25 07:47
Alkaline Phosphatase 169 U/L (38-126) H 06/10/25 07:47
Lipase 46 U/L (23-300) 06/10/25 07:47
Diagnostic Image Results:
06/10/25 CT Abd/pel W Iv And Oral Contr
1. Large heterogeneous mass within the right hepatic lobe measures 11 cm in diameter. Smaller satellite lesion within the posterior superior right hepatic lobe. Overall, findings are likely reflective of malignancy, which may represent
hepatocellular carcinoma, metastatic disease, or other malignancy.
2. Large amount of portal venous thrombosis, within the right and left intrahepatic portal veins, likely reflective of tumor thrombus.
3. 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
01/22/21 MR Abdomen W/o & W Contrast
Small distal pancreatic body cyst measuring up to 0.7 cm without suspicious features. This may represent a small pseudocyst or side branch intraductal papillary mucinous neoplasm. Per ACR criteria, recommendation is for follow-up pancreas protocol
CT or MRI every 2 years for 10 years.
Prior GI Procedures:
EGD: 06/2018 Roberto Normal esophagus. Biopsied.
- Z-line regular, 35 cm from the incisors.
- Mild antral gastritis. Biopsied.
- Normal examined duodenum. Biopsied.
bx neg
Colonoscopy: 06/2024- protano
- Diverticulosis in the sigmoid colon, in the
descending colon and in the transverse colon.
- One 1 mm polyp in the transverse colon, removed with
a jumbo cold forceps. Resected and retrieved.
- Internal hemorrhoids.
bx lymphoid aggregate, epithelial hyperplasia
Assessment / Plan
-
Pt is a 75yo with hx pancreatic cyst (last noted 2020 0.7cm without suspicious feature- pseudocyst vs IPMN did not proceed for 2 year follow up), GIST with Gleevac then resection in [facility], PUD, HTN urgency, hyperlipidemia graves disease,
trigeminal neuralgia with prior brain surgery with onset HTN and palpitations several months ago. She had cardiology evaluation and now with onset of epigastric pain over last 3 weeks. She was seen by PCP on Friday and recommended MRI and labs.
After visit she had period of shortness of breath. She now presents with continued pain and CT completed on admission with concern for large mass right hepatic lobe and smaller satellite lesions concern for malignancy with also large PVT with
concern for tumor thrombus and adrenal mass. Labs on admission with stable hbg 13 with bili 0.7, AST 37, ALT 28, alk phos 169.
-epigastric pain
-CT concern for liver masses/adrenal mass
-large PVT
-hx palpitation/malignant HTN several months ago
-mild LFT elevation
other med problems:
-pancreatic cyst (last noted 2020 0.7cm without suspicious feature- pseudocyst vs IPMN did not proceed for 2 year follow up)
- GIST with Gleevac then resection in [facility]
- PUD,
-hyperlipidemia
-graves disease
-trigeminal neuralgia with prior brain surgery
PLAN:
Etiology of liver mass related to malignant process with PVT vs other
plan per oncology for heparin gtt the biops on Friday
cont supportive care
for heme eval
ok for diet from GI standpoint
will add hepatitis B/C screening
check AFP, CEA and CA 19-[address] with Dr[address] Ibarra if MRI needed with hx pancreatic cyst without follow up imaging since 2020 and pancreas stable on CT
family updated
-
-
Thank you for consultation and allowing me to participate in the patient's care. Please call the campaign consultant GI physician during the after hours with any questions or concerns.
--- NOTE | 2025-06-10 15:12 | CM ---
CM reviewed chart, patient seen bedside with family, initial assessment completed. Patient is a 75-year-old female with a PMH notable for a small pancreatic cyst, PUD (s/p cauterization 6 years ago), stomach GIST (s/p surgical resection years ago),
Graves', in remission for 6 years, and hypertensive urgency, who is presenting with 3 weeks of increasing upper abdominal pain.
Patient resides independently in a single story home, up a flight of steps into home. Patient is independent with ADLs/IADs, denies use of DME, VN/SNF history. Patient confirms PCP Jayy Foss, pharmacy [facility], confirms prescription
coverage. Patient denies insecurities at home. CM will continue to follow for all discharge planning needs.
Plan; home no needs likely
[2025-06-10 15:17] LABS: APTT 27.6 Sec (23.4-35.0)
[2025-06-10] MEDS: HEPARIN 4800 UNITS IV (15:36)
[2025-06-10] MEDS: HEPARIN 25000 UNITS/250 ML IV (15:41)
[2025-06-10 16:59] LABS: CEA 1.19 ng/ml
[2025-06-10 19:07] LABS: AFP Male/Tumor Marker 1130 ng/ml
[2025-06-10] MEDS: AMBIEN 5 MG PO (22:14)
[2025-06-10] MEDS: NORVASC 5 MG PO (22:14)
[2025-06-10] MEDS: TOPROL XL 25 MG PO (22:15)
[2025-06-10] MEDS: COZAAR 100 MG PO (22:15)
[2025-06-10] MEDS: EFFEXOR XR 37.5 MG PO (22:15)
[2025-06-10 22:36] LABS: INR 1.01; PT 13.6 Sec (11.4-14.6)
[2025-06-10 22:38] LABS: APTT 70.1 Sec (23.4-35.0)
--- NOTE | 2025-06-10 23:00 | PTCARENOTE ---
pt c/o abdominal pain 07/03. informed HUMAN RESOURCES COORDINATOR Vesna Wakefield -1x dose of IV morphine w/+eff.
[2025-06-11] MEDS: MORPHINE SULFATE 2 MG IV ×2 (00:01→20:58)
[2025-06-11] MEDS: HEPARIN 2400 UNITS IV (00:02)
--- NOTE | 2025-06-11 06:26 | PTCARENOTE ---
pt c/o abdominal pain 07/03. informed MANAGER DISH Vesna Wakefield -1x dose of IV morphine w/+eff.
--- NOTE | 2025-06-11 07:10 | CON.ONC ---
Addendum entered and electronically signed by Francis Huston MD 06/11/25 07:27:
Regarding portal vein thrombosis, it does appear to be tumor thrombus so heparin and long-term anticoagulation is not crucial but patient is at high risk for VTE in light of active malignancy so therefore I am in favor of anticoagulation with
heparin currently pending biopsy and a DOAC such as Eliquis following the biopsy.
Original Note:
Consultation
-
Date Consultation Requested: 06/10/25
Date Consultation Performed: 06/11/25
Requesting Provider: Erick
Performing Provider: Betzaida
Reason for Consultation: Liver and adrenal metastasis, Portal vein thrombus
Impression
Impression
Hepatocellular carcinoma
History of GIST tumor
Portal vein thrombosis
Plan
Plan
Patient has a large hepatic mass with elevated alpha-fetoprotein which is very likely (almost definitely) patient relations representative of a hepatocellular carcinoma.
Also seen is an adrenal metastasis which is a somewhat unusual location for metastatic disease from hepatocellular carcinoma.
In addition, patient has a GIST tumor by history which can be slow-growing.
In general, we sometimes can avoid a biopsy if alpha-fetoprotein is elevated but in this case I think it is worthwhile to proceed with the biopsy as scheduled as the patient is being treated with anticoagulants with heparin and we have a window to
get a biopsy if needed while inpatient. I also think a biopsy should be done of both the liver mass as well as the adrenal metastasis to confirm to processes are related histopathologically.
Patient History
History of Present Illness
CC: Abdominal Pain
HPI: 75 y/o female with Hx Gastric GIST (diagnosed in 2008, s/p resection 2009 @ [facility]) presented to the ED on 06/10/2025 with 3 weeks of increasing abdominal pain in her epigastric region radiating to the right side and around to her back. In
addition, she had some acute episodes of shortness of breath and racing heart without chest pain. CT Abdomen/Pelvis revealed a large 11 cm mass in the right hepatic lobe with portal vein tumor associated thrombosis. Also seen was a 1.8 cm left
adrenal mass. She was placed on IV heparin and interventional radiology was consulted to perform a biopsy which will be likely done on Friday.
Past-Medical/Surgical History
PMH:
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
PSH: Brain (Patient reports prior brain surgery for trigeminal neuralgia ), Gynocological (Hysterectomy) and Other (Spinal Fusion C4)
Social History
Tobacco: Non-smoker
Alcohol: None
Drug: None
Personal: Partner
Living: Other
Family History: Cancer (Brother of brain cancer at approximately 68 years old) and Other (Father in accident when she was young, Mother of natural causes, did not share medical history)
Patient Medication
�Medication �Instructions �Recorded �Confirmed �Last Taken �Type
venlafaxine 37.5 mg 37.5 mg PO HS 05/11/14 06/10/25 06/09/25 History
capsule,extended release 24 hr
(Effexor XR)
zolpidem 5 mg tablet 5 mg PO HS 10/16/16 06/10/25 06/09/25 History
omeprazole 40 mg capsule,delayed 40 mg PO DAILY 04/14/18 06/10/25 06/09/25 History
release
amlodipine 5 mg tablet (Norvasc) 5 mg PO HS 06/10/25 06/10/25 06/09/25 History
losartan 100 mg tablet 100 mg PO HS 06/10/25 06/10/25 06/09/25 History
metoprolol succinate 25 mg 25 mg PO HS 06/10/25 06/10/25 06/09/25 History
tablet,extended release 24 hr
(Toprol XL)
Active Medications
Generic Name Dose Route Start Last Admin
Trade Name Freq PRN Reason Stop Dose Admin
Acetaminophen 650 mg 06/10/25 17:16
Acetaminophen 325 Mg Tablet PO 07/08/25 17:15
Q4HPRN PRN
mild pain/VILLAR/temp> 100.4F
Amlodipine Besylate 5 mg 06/10/25 22:00 06/10/25 22:14
Amlodipine 5 Mg Tablet PO 07/08/25 21:59 5 mg
HS SUKUMAR Administration
Bisacodyl 10 mg 06/10/25 17:16
Bisacodyl 10 Mg Rectal Suppository RECTAL 07/08/25 17:15
[id number] PRN
constipation
Heparin Sodium 4,800 units 06/10/25 15:17
Heparin 80 Units/Kg Iv Rebolus IV 07/08/25 15:16
PRN PRN
PTT < OR = 64 seconds
Heparin Sodium 2,400 units 06/10/25 15:17 06/11/25 00:02
Heparin 40 Units/Kg Iv Rebolus IV 07/08/25 15:16 2,400 units
PRN PRN Administration
PTT = 64.1 to 72.9 seconds
Heparin Sodium 25,000 units in 250 mls @ 0 mls/hr 06/10/25 14:45 06/10/25 15:41
Heparin 29043 Units/250 Ml IV 250 mls
PER PROTOCOL SUKUMAR Administration
Protocol
Per Protocol
Losartan Potassium 100 mg 06/10/25 22:00 06/10/25 22:15
Losartan 100 Mg Tablet PO 07/08/25 21:59 100 mg
HS SUKUMAR Administration
Metoprolol Succinate 25 mg 06/10/25 22:00 06/10/25 22:15
Metoprolol 25 Mg Extended Release Tablet PO 07/08/25 21:59 25 mg
HS SUKUMAR Administration
Pantoprazole Sodium 40 mg 06/11/25 08:00
Pantoprazole 40 Mg Delayed Release Tablet PO 07/09/25 07:59
DAILY SUKUMAR
Polyethylene Glycol 17 grams 06/10/25 17:16
Polyethylene Glycol Powder 17 Grams Packet PO 07/08/25 17:15
DAILYPRN PRN
constipation
Senna/Docusate Sodium 1 tablet 06/10/25 17:16
Docusate W/Senna (Vandana-Colace) Tablet PO 07/08/25 17:15
BIDPRN PRN
constipation
Sodium Chloride 0 flush 06/10/25 18:00
Sodium Chloride 0.9% (Flush) Syringe IV 07/08/25 17:59
PER PROTOCOL SUKUMAR
Venlafaxine HCl 37.5 mg 06/10/25 22:00 06/10/25 22:15
Venlafaxine 37.5 Mg Extended Release Capsule PO 07/08/25 21:59 37.5 mg
HS SUKUMAR Administration
Zolpidem Tartrate 5 mg 06/10/25 22:00 06/10/25 22:14
Zolpidem Tartrate 5 Mg Tablet PO 07/08/25 21:59 5 mg
HS SUKUMAR Administration
Physical Exam
-
General: Well Developed, Well Nourished, No Apparent Distress and Comfortable
HEENT: Negative Jaundice
Cardiology: Normal Sinus Rhythm, S1 and S2
Pulmonary: Clear
GI: Soft; Negative Distended
Musculoskeletal: No Clubbing, No Cyanosis and No Edema
Extremities: No C/C/E
Neurology: Non Focal
Labs
Lab Results
WBC 8.2 10^3/uL (4.8-10.8) 06/10/25 07:47
RBC 4.57 10^6/uL (4.20-5.40) 06/10/25 07:47
Hgb 13.0 g/dL (12.0-16.0) 06/10/25 07:47
Hct 38.7 % (37.0-47.0) 06/10/25 07:47
MCV 84.7 fL (81.0-99.0) 06/10/25 07:47
MCH 28.4 pg (27.0-31.0) 06/10/25 07:47
MCHC 33.6 g/dL (33.0-37.0) 06/10/25 07:47
RDW 13.2 % (11.5-14.5) 06/10/25 07:47
Plt Count 367 10^3/uL (130-400) 06/10/25 07:47
MPV 10.1 fL (7.4-10.4) 06/10/25 07:47
Abs Immat Gran (auto) 0.1 10^3/uL (0-0.05) H 06/10/25 07:47
Absolute Neuts (auto) 5.8 10^3/uL (1.4-6.5) 06/10/25 07:47
Absolute Lymphs (auto) 1.2 10^3/uL (1.2-3.4) 06/10/25 07:47
Absolute Monos (auto) 0.9 10^3/uL (0.1-0.6) H 06/10/25 07:47
Absolute Eos (auto) 0.2 10^3/uL (0-0.7) 06/10/25 07:47
Absolute Basos (auto) 0.1 10^3/uL (0-0.2) 06/10/25 07:47
Immature Gran % 0.7 % (0-0.5) H 06/10/25 07:47
Neutrophils % 70.4 % (42.2-75.2) 06/10/25 07:47
Lymphocytes % 14.6 % (20.5-51.1) L 06/10/25 07:47
Monocytes % 10.7 % (1.7-9.3) H 06/10/25 07:47
Eosinophils % 2.4 % (0-6) 06/10/25 07:47
Basophils % 1.2 % (0-2) 06/10/25 07:47
Creatinine 0.6 mg/dL (0.6-1.0) 06/10/25 07:47
Laboratory Tests
06/10/25
07:47
Tumor Marker AFP 1130
Carcinoembryonic Ag 1.19
CA 19-9 Antigen Pending
Vital Signs
Vital Signs
Temp Pulse Resp BP Pulse Ox
98.0 F 71 18 133/77 100
06/10/25 22:45 06/10/25 22:45 06/10/25 22:45 06/10/25 22:45 06/10/25 22:45
--- NOTE | 2025-06-11 07:16 | W.PN.HOSP.TC ---
Addendum entered and electronically signed by Cherelle Suarez MD 06/11/25 15:59:
I saw and evaluated the patient independently. I reviewed the resident�s note and agree with findings and plan as documented by Dr. Solorzano.
GENERAL: well developed, well nourished, female in no apparent distress
HEENT: NC/AT
HEART: regular rate and rhythm, +S1, +S2
LUNGS : clear to auscultation bilaterally
ABDOM: soft, minimally tender in RUQ, nondistended, + bowel sounds
EXT: no cyanosis, clubbing, or edema
NEUROLOGIC: nonfocal
Right Hepatic Lobe Masses with adrenal mass and portal vein thromboses--pt needs liver biopsy--apprec GI/heme--cont IV heparin---It is very possible that the thromboses are from her tumors in which case anticoagulation is of limited utility--follow
coags--pain control--AFP is 1100, CEA WNL
Graves Disease--s/p methimazole--off all meds--TSH WNL
Essential Hypertension--Continue Losartan, Metoprolol, Amlodipine as able
History of stomach gastrointestinal Stromal Tumor--S/p resection in 2008 at [place]
History of Peptic Ulcer Disease with GI bleeding--none currently--cont PPI
History of Pancreatic Cyst--Encouraged outpatient monitoring
DVT proph--IV heparin
code status--DNR
Original Note:
Today's Communication/Plan
-
Continue Heparin
Assessment / Plan
Assessment / Plan
Assessment:
This is a 75 y/o female with pmhx of pancreatic cyst, peptic ulcer disease (S/p cauterization), stomach gastrointestinal stroll tumor (diagnosed in 2008, s/p resection), Grave�s Disease in remission for 6 years, who presented to the ED on 06/10/2025
with 3 weeks of increasing abdominal pain in her epigastric region radiating to the right side and around to her back found to have 2 liver masses, an adrenal mass and portal vein thromboses
Plan:
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
-CT Abdomen/Pelvis in the ED revealed a large, space-occupying mass seen in the right hepatic lobe measuring 11cm in the greatest diameter. Thrombus is seen in the right portal vein, main portal vein, and central left portal vein, likely
representing tumor thumbs. Smaller additional hepatic lesion seen within the posterior superior right hepatic lobe. There is a left adrenal mass measuring 1.8cm in diameters.
-AFP: 1130
-CEA: 1.19
-CA19-9: Pending
-IR plans for biopsy on Friday
-Gastroenterology and Hematology/Oncology are following. Will appreciate their insight into this case
-Continue Heparin
-Continue to monitor PTT
-Will monitor for worsening pain
Graves Disease
-In remission without use of medication for 6 years
-TSH normal
Essential Hypertension
-Patient with history of ED visit for hypertensive urgency
-Continue home meds (Losartan, Metoprolol, Amlodipine)
History of Stomach GIST
-S/p resection in 2009 at [facility]
-Encouraged outpatient follow-up
History of Peptic Ulcer Disease
-S/p cauterization
-No current signs of GI bleed
-Continue to monitor H&H
-Continue IV Pantoprazole
History of Pancreatic Cyst
-Encouraged outpatient monitoring
Anticipated Discharge: > 48 hours
Subjective/Interval History
-
Date of Service: June 11, 2025
Patient was awake when I arrived. She reports she is doing well. She continues to experience aching abdominal pain in her epigastric region that wraps around her right side to her back, unchanged since yesterday. She denies nausea, vomiting,
dizziness, headache, diarrhea.
Objective Data
-
Labs:
Laboratory Results
06/10/25 06/11/25
22:11 06:45
WBC Pending
Hgb Pending
Hct Pending
Plt Count Pending
PT 13.6
INR 1.01
APTT 70.1 H Pending
Sodium Pending
Potassium Pending
Chloride Pending
Carbon Dioxide Pending
BUN Pending
Creatinine Pending
Glucose Pending
Calcium Pending
Total Bilirubin Pending
AST Pending
ALT Pending
Alkaline Phosphatase Pending
Vital Signs:
Vital Signs
Temp Pulse Resp BP Pulse Ox
98.0 F 71 18 133/77 100
06/10/25 22:45 06/10/25 22:45 06/10/25 22:45 06/10/25 22:45 06/10/25 22:45
I&O
06/10/25 06/11/25 06/12/25
06:59 06:59 06:59
Intake Total 480 / 480
Balance 480 / 480
Review of Systems
-
History Source: Patient
Constitutional: Denies Fever, Weight Gain, Weight Loss or Weakness
Respiratory: Denies Cough or Trouble Breathing
Cardiac: Denies Chest Pain
Abdomen/GI: Reports Abdominal Pain (unchanged); Denies Nausea, Vomiting, Diarrhea or Constipated
Neuro: Denies Dizzy, Headache, Weakness or Numbness
Physical Exam
-
General: Well Developed, Well Nourished, No Apparent Distress and Comfortable
HEENT: Normocephalic and Atraumatic
Respiratory: Clear to Auscultation
Cardiac: Regular Rhythm and S1/S2
GI: Soft, Nontender (Left side and RLQ only), Nondistended, Normal Bowel Sounds and Tender (RUQ)
Skin: Warm and Dry
Neuro: Awake, Alert and Oriented
Psych: Calm
[2025-06-11 07:19] LABS: Hematocrit 36.4 % (37.0-47.0); Hemoglobin 12.5 g/dL (12.0-16.0); Mean Corp Hgb Conc. 34.3 g/dL (33.0-37.0); Mean Corpuscular Volume 83.7 fL (81.0-99.0); Platelet Count 394 10^3/uL (130-400); Red Cell Dist. Width 13.0 % (11.5-14.5)
[2025-06-11 07:32] LABS: ALT (SGPT) 24 U/L (0-35); AST (SGOT) 33 U/L (14-36); Albumin 3.7 g/dl (3.5-5.0); Alkaline Phosphatase 152 U/L (38-126); Blood Urea Nitrogen 17 mg/dl (7-17); Calcium 9.4 mg/dl (8.4-10.2); Carbon Dioxide 23 mmol/L (22-30); Chloride 106 mmol/L (98-107); Estimated Creatinine Clearance 57 ml/min; Glucose 107 mg/dl (70-99); Magnesium 2.3 mg/dl (1.6-2.3); Potassium 4.3 mmol/L (3.5-5.1); Sodium 135 mmol/L (135-145); Total Protein 6.0 g/dl (6.3-8.2); eGFR > 60.00
[2025-06-11 07:34] LABS: APTT 156.1 Sec (23.4-35.0)
[2025-06-11 08:00] VITALS: BP 131/73
[2025-06-11] MEDS: PROTONIX 40 MG PO (08:52)
--- NOTE | 2025-06-11 14:40 | CM ---
Patient seen at bedside in [facility] with physicians. Patient stated that she was a little bored but physician reviewed process and next steps. Patient for Liver biopsy friday and plan is for discharge following that and follow up with physicians for
medical plan. CM will continue to follow for discharge planning needs.
Plan; home with no needs; follow up with physicians for plan of care.
[2025-06-11 15:00] VITALS: BP 121/70
[2025-06-11] MEDS: HEPARIN 25000 UNITS/250 ML IV (15:15)
[2025-06-11 15:31] LABS: APTT 56.1 Sec (23.4-35.0)
[2025-06-11] MEDS: HEPARIN 4800 UNITS IV (16:37)
[2025-06-11] MEDS: FLUSH (NSS) 1 FLUSH IV (16:38)
--- NOTE | 2025-06-11 17:15 | PTCARENOTE ---
Pt AAO x3, VÁSQUEZ well, ambulatory in room/to BR; manuel well. VSS. On room air- pulse ox 93%. Abd soft, sl rounded, manuel reg diet. Voiding in BR. IV Heparin drip currently infusing @ 1200 units/hr (12 ml/hr) via Rt AC site without sx of infiltration.
Resting in bed at present, no c/o. Will continue to monitor
[2025-06-11 19:33] LABS: Hepatitis B Surface Antigen Negative (Negative)
[2025-06-11 19:51] LABS: Hepatitis C Antibody Negative (Negative)
[2025-06-11] MEDS: COZAAR 100 MG PO (22:01)
[2025-06-11] MEDS: AMBIEN 5 MG PO (22:02)
[2025-06-11] MEDS: EFFEXOR XR 37.5 MG PO (22:02)
[2025-06-11] MEDS: NORVASC 5 MG PO (22:02)
[2025-06-11] MEDS: TOPROL XL 25 MG PO (22:02)
[2025-06-11 22:45] VITALS: BP 137/73
[2025-06-11 22:55] LABS: APTT 130.1 Sec (23.4-35.0)
[2025-06-12 06:15] LABS: APTT 157.8 Sec (23.4-35.0)
--- NOTE | 2025-06-12 07:03 | W.PN.HOSP.TC ---
Addendum entered and electronically signed by Cherelle Suarez MD 06/12/25 15:03:
I saw and evaluated the patient independently. I reviewed the resident�s note and agree with findings and plan as documented by Dr. Solorzano.
GENERAL: well developed, well nourished, female in no apparent distress
HEENT: NC/AT
HEART: regular rate and rhythm, +S1, +S2
LUNGS : clear to auscultation bilaterally
ABDOM: soft, minimally tender in RUQ, nondistended, + bowel sounds
EXT: no cyanosis, clubbing, or edema
NEUROLOGIC: nonfocal
Right Hepatic Lobe Mass with adrenal mass and portal vein thromboses--pt needs liver biopsy--apprec GI/heme--cont IV heparin---It is very possible that the thromboses are from her tumors, in which case anticoagulation is of limited utility--follow
coags--pain control--AFP is 1100, CEA WNL, CA 19-9 pending
Graves Disease--s/p methimazole--off all meds--TSH WNL
Essential Hypertension--Continue Losartan, Metoprolol, Amlodipine as able
History of stomach gastrointestinal Stromal Tumor--S/p resection in 2008 at [place]
History of Peptic Ulcer Disease with GI bleeding--none currently--cont PPI
History of Pancreatic Cyst--Encouraged outpatient monitoring
DVT proph--IV heparin
code status--DNR
Original Note:
Today's Communication/Plan
-
Biopsy tomorrow
Assessment / Plan
Assessment / Plan
Assessment:
This is a 75 y/o female with pmhx of pancreatic cyst, peptic ulcer disease (S/p cauterization), stomach gastrointestinal stroll tumor (diagnosed in 2008, s/p resection), Grave�s Disease in remission for 6 years, who presented to the ED on 06/10/2025
with 3 weeks of increasing abdominal pain in her epigastric region radiating to the right side and around to her back found to have 2 liver masses, an adrenal mass and portal vein thromboses
Plan:
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
-CT Abdomen/Pelvis in the ED revealed a large, space-occupying mass seen in the right hepatic lobe measuring 11cm in the greatest diameter. Thrombus is seen in the right portal vein, main portal vein, and central left portal vein, likely
representing tumor thumbs. Smaller additional hepatic lesion seen within the posterior superior right hepatic lobe. There is a left adrenal mass measuring 1.8cm in diameters.
-AFP: 1130
-CEA: 1.19
-CA19-9: Pending
-IR plans for biopsy on Friday
-Gastroenterology and Hematology/Oncology are following. Will appreciate their insight into this case
-Continue Heparin. Order has been placed to hold Heparin 4 hours prior to biopsy tomorrow
-Order placed for patient to be NPO after midnight in anticipation of biopsy
-Continue to monitor PTT
-Will monitor for worsening pain
Graves Disease
-In remission without use of medication for 6 years
-TSH normal
Essential Hypertension
-Patient with history of ED visit for hypertensive urgency
-Continue home meds (Losartan, Metoprolol, Amlodipine)
History of Stomach GIST
-S/p resection in 2009 at [place]
-Encouraged outpatient follow-up
History of Peptic Ulcer Disease
-S/p cauterization
-No current signs of GI bleed
-Continue to monitor H&H
-Continue IV Pantoprazole
History of Pancreatic Cyst
-Encouraged outpatient monitoring
Anticipated Discharge: 24 - 48 hours
Subjective/Interval History
-
Date of Service: June 12, 2025
Patient was doing well when I arrived. She reports no significant change in her abdominal pain since yesterday. We reviewed the plan for scheduled liver biopsy tomorrow, including her being NPO after midnight and that her Heparin was to be held 4
hours prior to the procedure.
Objective Data
-
Labs:
Laboratory Results
06/11/25 06/12/25 06/12/25
22:16 05:44 13:20
APTT 130.1 H 157.8 H* Pending
Vital Signs:
Vital Signs
Temp Pulse Resp BP Pulse Ox
98.1 F 78 16 137/73 96
06/12/25 05:00 06/11/25 22:45 06/11/25 22:45 06/11/25 22:45 06/11/25 22:45
I&O
06/11/25 06/12/25 06/13/25
06:59 06:59 06:59
Intake Total 480 / 480 1550 / 1550
Balance 480 / 480 1550 / 1550
Review of Systems
-
History Source: Patient
Constitutional: Denies Fever or Weakness
Respiratory: Denies Cough or Trouble Breathing
Cardiac: Denies Chest Pain
Abdomen/GI: Reports Abdominal Pain (Unchanged); Denies Nausea, Vomiting, Diarrhea or Constipated
Musculoskeletal: Denies Joint Pain or Muscle Pain
Skin: Denies Itching
Hematologic / Lymphatic: Denies Swollen Glands
Physical Exam
-
General: Well Developed, Well Nourished, No Apparent Distress and Comfortable
HEENT: Normocephalic and Atraumatic
Respiratory: Clear to Auscultation
Cardiac: Regular Rhythm and S1/S2
GI: Soft, Nontender (Left side and RLQ only), Nondistended, Normal Bowel Sounds and Tender (RUQ only, mild)
Skin: Warm and Dry
Neuro: Awake, Alert and Oriented
Psych: Calm and Intact Judgement/Insight
[2025-06-12 07:40] VITALS: BP 127/68
[2025-06-12] MEDS: PROTONIX 40 MG PO (08:25)
[2025-06-12 14:22] LABS: APTT 53.2 Sec (23.4-35.0)
[2025-06-12] MEDS: HEPARIN 4800 UNITS IV (14:45)
[2025-06-12] MEDS: HEPARIN 25000 UNITS/250 ML IV (15:18)
[2025-06-12 15:25] VITALS: BP 138/72
--- NOTE | 2025-06-12 18:11 | VATNOTE ---
vat RN was requested to place new iv site. upon inspection, RAC area of old iv site- red, tender, per patient she said it seemed to happen within the last few hours . heat applied, arm elevated. left mab area bruised and tender,area of previous iv
site. heat applied, arm elevated. primary RN aware, suggested pt mention to md with assessment tomorrow 06/13. will cont to monitor
[2025-06-12] MEDS: TOPROL XL 25 MG PO (20:48)
[2025-06-12] MEDS: NORVASC 5 MG PO (20:48)
[2025-06-12] MEDS: EFFEXOR XR 37.5 MG PO (20:48)
[2025-06-12] MEDS: COZAAR 100 MG PO (20:48)
[2025-06-12] MEDS: AMBIEN 5 MG PO (20:49)
[2025-06-12] MEDS: DICLOFENAC 1% TOPICAL GEL 1 GRAM TOPICAL (20:50)
[2025-06-12 21:45] LABS: APTT 80.9 Sec (23.4-35.0)
[2025-06-12 23:29] VITALS: BP 149/70
[2025-06-13] VITALS (12 sets, daily range): BP systolic 67–168; BP diastolic 64–88
--- NOTE | 2025-06-13 07:22 | W.PN.HOSP.TC ---
Today's Communication/Plan
-
Biopsy today
Assessment / Plan
Assessment / Plan
Assessment:
This is a 75 y/o female with pmhx of pancreatic cyst, peptic ulcer disease (S/p cauterization), stomach gastrointestinal stroll tumor (diagnosed in 2008, s/p resection), Grave�s Disease in remission for 6 years, who presented to the ED on 06/10/2025
with 3 weeks of increasing abdominal pain in her epigastric region radiating to the right side and around to her back found to have 2 liver masses, an adrenal mass and portal vein thromboses
Plan:
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
-CT Abdomen/Pelvis in the ED revealed a large, space-occupying mass seen in the right hepatic lobe measuring 11cm in the greatest diameter. Thrombus is seen in the right portal vein, main portal vein, and central left portal vein, likely
representing tumor thumbs. Smaller additional hepatic lesion seen within the posterior superior right hepatic lobe. There is a left adrenal mass measuring 1.8cm in diameters.
-AFP: 1130
-CEA: 1.19
-CA19-9: Pending
-IR plans for biopsy Today
-Gastroenterology and Hematology/Oncology are following. Will appreciate their insight into this case
-Continue Heparin. Order has been placed to hold Heparin 4 hours prior to biopsy today
-Patient is NPO anticipation of biopsy
-Continue to monitor PTT
-Will monitor for worsening pain
-Patient will be discharged on DOAC therapy
IV Access Site Tenderness
-Less likely to be thrombosis due to heparin drip. It is possible this is a superficial infection, or more likely a hematoma. Today it is improving by both my examination and patient's symptoms
-Continue Doxycycline, Diclofenac, warm compresses
-T/c US of upper extremity if symptoms worsen
-Consider continuing doxycycline for a total of 5 days on discharge if any clear signs of infection emerge.
Graves Disease
-In remission without use of medication for 6 years
-TSH normal
Essential Hypertension
-Patient with history of ED visit for hypertensive urgency
-Continue home meds (Losartan, Metoprolol, Amlodipine)
History of Stomach GIST
-S/p resection in 2009 at [place]
-Encouraged outpatient follow-up
History of Peptic Ulcer Disease
-S/p cauterization
-No current signs of GI bleed
-Continue to monitor H&H
-Continue IV Pantoprazole
History of Pancreatic Cyst
-Encouraged outpatient monitoring
Anticipated Discharge: Within 24 hours
Subjective/Interval History
-
Date of Service: June 13, 2025
Patient reports that last night, she had an episode where she suddenly felt sweaty accompanied by abdominal cramps lasting for only a few minutes. She went to the bathroom and had a slightly looser stool than usual, though it was still formed and it
was not diarrhea. She reports that this immediately resolved her symptoms, and that they have not returned since.
She does have some discomfort at the site of her IV which began last night after her catheter was changed. Her other IV sites remain bruised and tender. She denies any chills, fever, dizziness, nausea, vomiting, diarrhea, constipation. Her symptoms
are improved significantly today with heat and diclofenac gel.
Objective Data
-
Labs:
Laboratory Results
06/12/25 06/13/25
06:00
PT Pending
INR Pending
APTT 80.9 H
Vital Signs:
Vital Signs
Temp Pulse Resp BP Pulse Ox
99.2 F 81 16 149/70 96
06/12/25 23:29 06/12/25 23:29 06/12/25 23:29 06/12/25 23:29 06/12/25 23:29
I&O
06/12/25 06/13/25 06/14/25
06:59 06:59 06:59
Intake Total 1550 / 1550 840 / 840
Balance 1550 / 1550 840 / 840
Review of Systems
-
History Source: Patient
Constitutional: Denies Fever, Fatigue, Sleep Disturbance, Chills or Weakness
Respiratory: Denies Cough or Trouble Breathing
Cardiac: Denies Chest Pain
Abdomen/GI: Reports Abdominal Pain (See HPI); Denies Nausea, Vomiting, Diarrhea or Constipated
Musculoskeletal: Denies Joint Pain, Joint Swelling or Muscle Pain
Skin: Denies Itching
Neuro: Denies Dizzy, Headache, Weakness or Numbness
Physical Exam
-
General: Well Developed, Well Nourished, No Apparent Distress and Comfortable
HEENT: Normocephalic and Atraumatic
Respiratory: Clear to Auscultation
Cardiac: Regular Rhythm and S1/S2
Skin: Warm, Dry and Other (There are two healing bruises on her left arm at the site of prior IV access, and one area of erythema at a prior IV access side on the right arm. The right arm is diminished in both erythema and warmth today with
decreased tenderness)
Neuro: Awake, Alert and Oriented
Psych: Calm and Intact Judgement/Insight
[2025-06-13 08:26] LABS: INR 1.02; PT 13.7 Sec (11.4-14.6)
[2025-06-13] MEDS: DICLOFENAC 1% TOPICAL GEL TOPICAL ×4 (08:41→22:00)
[2025-06-13] MEDS: VIBRAMYCIN 100 MG PO (08:42)
[2025-06-13] MEDS: PROTONIX 40 MG PO (08:42)
[2025-06-13] MEDS: FLUSH (NSS) 1 FLUSH IV ×2 (08:42→09:39)
[2025-06-13 08:56] LABS: APTT 52.9 Sec (23.4-35.0)
[2025-06-13] MEDS: MORPHINE SULFATE 2 MG IV ×2 (09:39→22:04)
[2025-06-13] MEDS: ZOFRAN 4 MG PO (10:26)
--- NOTE | 2025-06-13 14:50 | PTCARENOTE ---
Pt returned to room from IR via stretcher s/p liver bx; accompanied by volunteer. Pt AAO x3, VÁSQUEZ; able to transfer to bed with assist x1; no c/o weakness/dizziness. Pt aware of bedrest post-procedure x2 hrs. Rt lateral flank bandaid D/I; site
without drainage/edema/bruising. Pt to resume regular diet. To start PO Eliquis. Resting in bed at present. No c/o. Will continue to monitor.
[2025-06-13] MEDS: ELIQUIS 10 MG PO (15:01)
--- NOTE | 2025-06-13 15:27 | W.PN.ONC ---
Today's Communication / Plan
-
I met w/ patient and family
Liver biopsy done earlier today
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
Further imaging and treatment options TBD pending path
Would give Eliquis 5mg BID (without loading dose - s/p liver biopsy, and likely tumor thrombus rather than bland thrombus)
Will arrange outpatient onc f/u w/ [place] to review path and consider treatment options
t/c Tramadol or other low-potency opioid for prn pain
([facility] no longer accepts her insurance)
Impression
Impression
Hepatocellular carcinoma
History of GIST tumor
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
Plan
Plan
I met w/ patient and family
Liver biopsy done earlier today
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
Further imaging and treatment options TBD pending path
Would give Eliquis 5mg BID (without loading dose - s/p liver biopsy, and likely tumor thrombus rather than bland thrombus)
Will arrange outpatient onc f/u w/ [place] to review path and consider treatment options
t/c Tramadol or other low-potency opioid for prn pain
([facility] no longer accepts her insurance)
Subjective/Objective
Subjective/Objective
s/p liver biopsy today. Pain is intermittent.
5-6 family members at bedside
Vital Signs:
Vital Signs
Temp Pulse Resp BP Pulse Ox
98.2 F 68 14 104/68 95
06/13/25 12:39 06/13/25 14:18 06/13/25 14:18 06/13/25 14:18 06/13/25 13:57
Lab Results:
Laboratory Data
WBC 9.7 10^3/uL (4.8-10.8) 06/11/25 06:45
Hgb 12.5 g/dL (12.0-16.0) 06/11/25 06:45
Plt Count 394 10^3/uL (130-400) 06/11/25 06:45
PT 13.7 Sec (11.4-14.6) 06/13/25 07:35
INR 1.02 06/13/25 07:35
APTT 52.9 Sec (23.4-35.0) H 06/13/25 07:35
eGFR > 60.00 06/11/25 06:45
--- NOTE | 2025-06-13 15:55 | CM ---
Chart reviewed. Care ongoing
Liver biopsy today
No CM needs at this time
Plan: Home, no needs
--- NOTE | 2025-06-13 16:48 | PTCARENOTE ---
Pt resting comfortably since return from IR/ AAO x3, MA well. On bedrest for 2 hrs post-procedure. VSS. On room air- pulseox 96%, no SOB. Abd soft, pt denies discomfort at present; to resume regular diet. Voids in BR without difficulty. Rt
lateral flank site without edema/bruising/draiange; dsg D/I. Will continue to monitor.
[2025-06-13] MEDS: NORVASC 5 MG PO (22:00)
[2025-06-13] MEDS: COZAAR 100 MG PO (22:01)
[2025-06-13] MEDS: TOPROL XL 25 MG PO (22:01)
[2025-06-13] MEDS: EFFEXOR XR 37.5 MG PO (22:01)
[2025-06-13] MEDS: AMBIEN 5 MG PO (22:01)
--- NOTE | 2025-06-13 22:31 | VATNOTE ---
called to room to assess right forearm IV site; phlebitic with red area above insertion site; pt wanted ice on site. pt only had morphine thru iv recently and has had morphine throughout admission. pt and this VAT RN noted 'itchy' red streak below
site. area cleansed with alcohol and chlorhexadine.
[2025-06-14 02:13] LABS: CA 19-9 8 U/mL (<=35)
--- NOTE | 2025-06-14 02:39 | DOWNTIME ---
There was a [employer] Downtime on 06/14/2025 from 0100 to 06/14/2025 at 0220. Downtime documentation of patient's care, including medication administrations, has been reconciled in the electronic record per guidelines. Refer to the
patient's paper chart under the miscellaneous tab to see printed paper medication records and downtime forms.
[2025-06-14 03:29] VITALS: BP 127/63
[2025-06-14 07:42] LABS: Hematocrit 36.4 % (37.0-47.0); Hemoglobin 12.2 g/dL (12.0-16.0); Mean Corp Hgb Conc. 33.5 g/dL (33.0-37.0); Mean Corpuscular Volume 84.3 fL (81.0-99.0); Platelet Count 358 10^3/uL (130-400); Red Cell Dist. Width 13.2 % (11.5-14.5)
[2025-06-14 07:56] VITALS: BP 146/78
--- NOTE | 2025-06-14 08:24 | W.PN.ONC2 ---
Today's Communication / Plan
-
Discharge planning
Impression
Impression
Hepatocellular carcinoma s/p liver biopsy
History of GIST tumor
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
Plan
Plan
Suspect HCC, though h/o GIST noted -follow for liver biospy path
Further imaging and treatment options TBD pending path
Would give Eliquis 5mg BID (without loading dose - s/p liver biopsy, and likely tumor thrombus rather than bland thrombus)
Will arrange outpatient onc f/u w/ [place] to review path and consider treatment options
t/c Tramadol or other low-potency opioid for prn pain
([facility] no longer accepts her insurance)
Subjective/Objective
Subjective
no new complaints
pain and nausea improved
Vital Signs:
Vital Signs
Temp Pulse Resp BP Pulse Ox
98.2 F 70 14 146/78 97
06/14/25 07:56 06/14/25 07:56 06/14/25 07:56 06/14/25 07:56 06/14/25 07:56
Lab Results:
Laboratory Data
WBC 8.4 10^3/uL (4.8-10.8) 06/14/25 07:04
Hgb 12.2 g/dL (12.0-16.0) 06/14/25 07:04
Plt Count 358 10^3/uL (130-400) 06/14/25 07:04
PT 13.7 Sec (11.4-14.6) 06/13/25 07:35
INR 1.02 06/13/25 07:35
APTT 52.9 Sec (23.4-35.0) H 06/13/25 07:35
eGFR Cancelled 06/14/25 07:04
Physical Exam
HEENT: Moist Mucous Membranes; No Jaundice
Cardiology: Normal Sinus Rhythm
Pulmonary: Clear
GI: Soft and Other (TTP RUQ)
Extremities: Pulses Present; No Edema
Neuro: Non Focal
[2025-06-14] MEDS: DICLOFENAC 1% TOPICAL GEL TOPICAL (08:25)
[2025-06-14] MEDS: VIBRAMYCIN 100 MG PO (08:26)
[2025-06-14] MEDS: PROTONIX PO (08:27)
[2025-06-14] MEDS: ELIQUIS 5 MG PO (08:27)
[2025-06-14 09:17] LABS: Blood Urea Nitrogen 17 mg/dl (7-17); Calcium 9.4 mg/dl (8.4-10.2); Carbon Dioxide 25 mmol/L (22-30); Chloride 106 mmol/L (98-107); Estimated Creatinine Clearance 50 ml/min; Glucose 133 mg/dl (70-99); Potassium 4.2 mmol/L (3.5-5.1); Sodium 138 mmol/L (135-145); eGFR > 60.00
--- NOTE | 2025-06-14 11:13 | CM ---
IMM reviewed with patient and form on chart. Possible discharge today
Plan: Home, no needs
--- NOTE | 2025-06-14 11:23 | W.DCSUMMARY ---
Documented by User: Lauryn Solorzano , Resident 06/14/25 13:12
Discharge Summary
Discharge Data
Date of Admission: 06/10/25
Date of Discharge: 06/14/25
-
Pending Results: Yes (Liver Biopsy)
Hospital Course
This is a 75 y/o female with pmhx of pancreatic cyst, peptic ulcer disease (S/p cauterization), stomach gastrointestinal stroll tumor (diagnosed in 2008, s/p resection), Grave�s Disease in remission for 6 years, who presented to the ED on 06/10/2025
with 3 weeks of increasing abdominal pain in her epigastric region radiating to the right side and around to her back. She reports that initially her symptoms began with an ache, but as of last weekend it increased to waves of pain. Her pain was
improved by eating and worsened by pressing on the right side of her abdomen. She scheduled an appointment with her PCP on 06/06/2025, who ordered labs for her including CBC, CMP, Lipase, Amylase. Her ALP was elevated at 221, but otherwise all tests
were within normal limits. That same day she reports sudden onset of shortness of breath while walking that required her to sit down. This episode resolved within 5 minutes on its own, and she never had shortness of breath like this before or since.
On 06/08/2025 her pain continued to worsen until it became unbearable this morning, prompting her visit to the ED. Her Alkaline Phosphatase in the ED was 169, and her AST was 37. CT Abdomen/Pelvis in the ED revealed a large, space-occupying mass seen
in the right hepatic lobe measuring 11cm in the greatest diameter. Thrombus is seen in the right portal vein, main portal vein, and central left portal vein, likely representing tumor thumbs. Smaller additional hepatic lesion seen within the
posterior superior right hepatic lobe. There is a left adrenal mass measuring 1.8cm in diameters. She was started on a Heparin drip due to the thromboses. She developed some IV catheter site tenderness and was started on diclofenac and doxycycline.
On 06/13, a biopsy of her liver mass was done. Anticoagulation was switched from Heparin to Eliquis 5mg BID. She was found to be medically stable and discharged to home on 06/14/2025 with instructions to follow up with her PCP in less than 1 week, and
to follow up outpatient with Hematology/Oncology for the results of her biopsy.
Discharge Plan
-
Patient Disposition: Home (Routine Discharge)
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
Condition: Good
Diet: No restrictions
Activity: No restrictions
Driving Restrictions: As prior to admission
Bathing Restrictions: None
Referrals:
Jayy Foss MD [Family Provider, [facility]] - in less than 1 week
Additional Discharge Medication Instructions: We are sending you a prescription for Doxycycline. This is an antibiotic. It is important you take this medication twice a day until you have completed the entire course. We have given you a prescription
for ondansetron (Zofran) to take as needed in case this medicine makes you nauseous.
We are also sending you with a prescription for Eliquis 5mg. This is an anticoagulant. You should take this twice a day.
We are also sending you with a prescription for a pain medication. You can take this as needed when your abdominal pain worsens.
Prescriptions:
New
doxycycline hyclate 100 mg Capsule
100 mg PO BID 3 Days Qty: 7 0RF
Eliquis 5 mg Tablet
5 mg PO BID Qty: 60 0RF
ondansetron HCl 4 mg Tablet
4 mg PO Q8HPRN PRN (Reason: Nausea or Vomiting) Qty: 10 0RF
tramadol 50 mg tablet
50 mg PO Q8H PRN (Reason: pain) 3 Days Qty: 10 0RF
Continued
venlafaxine [Effexor XR] 37.5 MG capsule,extended release 24hr
37.5 mg PO HS Qty: 0 0RF
amlodipine [Norvasc] 5 mg Tablet
5 mg PO HS Qty: 0 0RF
omeprazole 40 MG capsule,delayed release(DR/EC)
40 mg PO DAILY Qty: 0 0RF
zolpidem 5 MG tablet
5 mg PO HS Qty: 0 0RF
metoprolol succinate [Toprol XL] 25 mg Tablet Extended Release 24 Hr
25 mg PO HS Qty: 0 0RF
losartan 100 mg Tablet
100 mg PO HS Qty: 0 0RF
Discharge Orders:
Discharge Patient (As Directed); Ordered 06/14/25
Ordered By: Lauryn Solorzano
Discharge Date and Time
Discharge Date/Time: 06/14/25 12:50
Print Language: ERITREAN

Documented by User: Baron Macedo DO 06/14/25 14:06
Discharge Summary
Discharge Data
Date of Admission: 06/10/25
Date of Discharge: 06/14/25
Total time spent discharging patient (in min): 33
Discharge Plan
-
Patient Disposition: Home (Routine Discharge)
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
Condition: Good
Diet: No restrictions
Activity: No restrictions
Driving Restrictions: As prior to admission
Bathing Restrictions: None
Referrals:
Jayy Foss MD [Family Provider, Family Practice] - in less than 1 week
Additional Discharge Medication Instructions: We are sending you a prescription for Doxycycline. This is an antibiotic. It is important you take this medication twice a day until you have completed the entire course. We have given you a prescription
for ondansetron (Zofran) to take as needed in case this medicine makes you nauseous.
We are also sending you with a prescription for Eliquis 5mg. This is an anticoagulant. You should take this twice a day.
We are also sending you with a prescription for a pain medication. You can take this as needed when your abdominal pain worsens.
Prescriptions:
New
doxycycline hyclate 100 mg Capsule
100 mg PO BID 3 Days Qty: 7 0RF
Eliquis 5 mg Tablet
5 mg PO BID Qty: 60 0RF
ondansetron HCl 4 mg Tablet
4 mg PO Q8HPRN PRN (Reason: Nausea or Vomiting) Qty: 10 0RF
tramadol 50 mg tablet
50 mg PO Q8H PRN (Reason: pain) 3 Days Qty: 10 0RF
Continued
venlafaxine [Effexor XR] 37.5 MG capsule,extended release 24hr
37.5 mg PO HS Qty: 0 0RF
amlodipine [Norvasc] 5 mg Tablet
5 mg PO HS Qty: 0 0RF
omeprazole 40 MG capsule,delayed release(DR/EC)
40 mg PO DAILY Qty: 0 0RF
zolpidem 5 MG tablet
5 mg PO HS Qty: 0 0RF
metoprolol succinate [Toprol XL] 25 mg Tablet Extended Release 24 Hr
25 mg PO HS Qty: 0 0RF
losartan 100 mg Tablet
100 mg PO HS Qty: 0 0RF
Discharge Orders:
Discharge Patient (As Directed); Ordered 06/14/25
Ordered By: Lauryn Solorzano
Discharge Date and Time
Discharge Date/Time: 06/14/25 12:50
Print Language: ERITREAN
--- NOTE | 2025-06-14 11:24 | W.PN.HOSP.TC ---
Today's Communication/Plan
-
Discharge today
Assessment / Plan
Assessment / Plan
Assessment:
This is a 75 y/o female with pmhx of pancreatic cyst, peptic ulcer disease (S/p cauterization), stomach gastrointestinal stroll tumor (diagnosed in 2008, s/p resection), Grave�s Disease in remission for 6 years, who presented to the ED on 06/10/2025
with 3 weeks of increasing abdominal pain in her epigastric region radiating to the right side and around to her back found to have 2 liver masses, an adrenal mass and portal vein thromboses
Plan:
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
-CT Abdomen/Pelvis in the ED revealed a large, space-occupying mass seen in the right hepatic lobe measuring 11cm in the greatest diameter. Thrombus is seen in the right portal vein, main portal vein, and central left portal vein, likely
representing tumor thumbs. Smaller additional hepatic lesion seen within the posterior superior right hepatic lobe. There is a left adrenal mass measuring 1.8cm in diameters.
-AFP: 1130
-CEA: 1.19
-CA19-9: Normal
-Patient is medically stable and ready for discharge. She will follow up with her oncologist for the results of her biopsy
-Continue Eliquis 5mg BID
-Will discharge patient with oxycodone for intermittent, severe abdominal pains likely secondary to capsular pain
IV Access Site Tenderness
-Less likely to be thrombosis due to heparin drip. It is possible this is a superficial infection, or a hematoma.
-Continue Doxycycline, Diclofenac, warm compresses
-Will discharge patient on short course of Doxycycline, as well as Zofran for nausea
Graves Disease
-In remission without use of medication for 6 years
-TSH normal
Essential Hypertension
-Patient with history of ED visit for hypertensive urgency
-Continue home meds (Losartan, Metoprolol, Amlodipine)
History of Stomach GIST
-S/p resection in 2009 at [place]
-Encouraged outpatient follow-up
History of Peptic Ulcer Disease
-S/p cauterization
-No current signs of GI bleed
History of Pancreatic Cyst
-Encouraged outpatient monitoring
Anticipated Discharge: Today
Subjective/Interval History
-
Date of Service: June 14, 2025
Patient was doing well when I arrived without any concerns or complaints. She states the pain in her right arm where her IV site was is significantly improved, though there is still an area of tenderness and some redness. She does still continue to
have intermittent abdominal pain, though none currently. We spent time reviewing the results of her CT scan and discussing next steps including following up outpatient with her oncologist to review the results of this scan, and deciding what
treatment(s) she will like to pursue at that time based upon the results.
Objective Data
-
Labs:
Laboratory Results
06/14/25 06/14/25
07:04 08:53
WBC 8.4
Hgb 12.2
Hct 36.4 L
Plt Count 358
Sodium Cancelled 138
Potassium Cancelled 4.2
Chloride Cancelled 106
Carbon Dioxide Cancelled 25
BUN Cancelled 17
Creatinine Cancelled 0.8
Glucose Cancelled 133 H
Calcium Cancelled 9.4
Vital Signs:
Vital Signs
Temp Pulse Resp BP Pulse Ox
98.2 F 70 14 146/78 97
06/14/25 07:56 06/14/25 07:56 06/14/25 07:56 06/14/25 07:56 06/14/25 11:21
I&O
06/13/25 06/14/25 06/15/25
06:59 06:59 06:59
Intake Total 840 / 840 1162 / 1162
Balance 840 / 840 1162 / 1162
Review of Systems
-
History Source: Patient
All other systems: Reviewed and negative
Constitutional: Denies Fever, Weight Loss, No Appetite, Fatigue, Chills or Weakness
Respiratory: Denies Cough or Trouble Breathing
Cardiac: Denies Chest Pain or Palpitations
Abdomen/GI: Reports Abdominal Pain (See HPI); Denies Nausea, Vomiting, Diarrhea or Constipated
Physical Exam
-
General: Well Developed, Well Nourished, No Apparent Distress and Comfortable
HEENT: Normocephalic and Atraumatic
Respiratory: Clear to Auscultation
Cardiac: Regular Rhythm and S1/S2
Skin: Warm and Dry
Neuro: Awake, Alert and Oriented
Psych: Calm and Intact Judgement/Insight
== END 2025-06-14 12:50 | disposition home or self-care (01) | DRG 435 ==
LOC: 4 EAST ACU 16:17
PROVIDERS: Nurse Practitioner Adult Health; Radiology Diagnostic Radiology; Radiology Vascular & Interventional Radiology; ADMITTING PHYSICIAN Internal Medicine; ATTENDING PHYSICIAN Internal Medicine; CONSULT PHYSICIAN Internal Medicine Gastroenterology; EMERGENCY PHYSICIAN Emergency Medicine; FAMILY PHYSICIAN Family Medicine; OTHER PHYSICIAN Internal Medicine Hematology & Oncology
PROC: 0FB13ZX Excision of Right Lobe Liver, Percutaneous Approach, Diagnostic (ICD-10-PCS; 2025-06-13)
DX: C22.0 Liver cell carcinoma (principal); I81 Portal vein thrombosis; K86.2 Cyst of pancreas; C79.70 Secondary malignant neoplasm of unspecified adrenal gland; E05.00 Thyrotoxicosis with diffuse goiter without thyrotoxic crisis or storm; K21.9 Gastro-esophageal reflux disease without esophagitis; G47.00 Insomnia, unspecified; F41.9 Anxiety disorder, unspecified; E78.00 Pure hypercholesterolemia, unspecified; I10 Essential (primary) hypertension; Z60.2 Problems related to living alone; Z66 Do not resuscitate; Z87.11 Personal history of peptic ulcer disease; Z85.831 Personal history of malignant neoplasm of soft tissue; Z90.710 Acquired absence of both cervix and uterus; Z90.3 Acquired absence of stomach [part of]; Z98.1 Arthrodesis status; Z80.8 Family history of malignant neoplasm of other organs or systems; Z88.1 Allergy status to other antibiotic agents; Z88.0 Allergy status to penicillin; Z88.8 Allergy status to other drugs, medicaments and biological substances; Z91.040 Latex allergy status; Z86.0100 Personal history of colon polyps, unspecified
CPT/HCPCS: 47000; 74177; 76942; 80048; 80053; 81003; 81015; 82105; 82378; 83690; 83735; 84443; 84484; 85025; 85027; 85610; 85730; 86301; 86704; 86705; 86706; 86803; 87340; 88307; 88333; 88341; 88342; 93005; 96365; 96366; 96375; 99152; 99285; Q9967

== ENCOUNTER → 2025-06-29 10:53 | Outpatient (REF) | payer OTHER, SELFPAY | LOC: MRI 3T 10:53 | PROVIDERS: ATTENDING PHYSICIAN Nurse Practitioner Adult Health; FAMILY PHYSICIAN Family Medicine | DX: C22.0 Liver cell carcinoma (principal) | CPT/HCPCS: 74183; A9575 ==